=== PATIENT | male | born 1960 | race Caucasian/White ===

== ENCOUNTER 2018-09-19 00:41 | Outpatient (CLI) | payer BC, SELFPAY ==
--- NOTE | 2018-09-19 08:19 | DI.RAD_ITS ---
SYMPTOMS/DIAGNOSIS: BRUISING, TENDERNESS, SWELLING, DORSUM OF LEFT FOOT, ? TRAUMA, S90.32XA LEFT FOOT: No fracture or dislocation is seen. There are no significant degenerative changes. IMPRESSION: Negative left foot.
[2018-09-19 08:42] LABS: Abs Immature Grans 0.01 k/cumm (0.0-0.09); Absolute Basophil Count 0.01 k/cumm (0.0-0.2); Absolute Eosinophil Count 0.15 k/cumm (0.0-0.7); Absolute Monocyte Count 0.49 k/cumm (0.11-0.7); Absolute Neutrophil Count 3.11 k/cumm (1.2-6.7); Basophils % 0.2; Eosinophils % 3.3; HCT 44.6 % (40.0-50.0); HGB 15.4 g/dL (13.5-17.5); Immature Grans % 0.2; Lymphocytes % 17.5; Mean Corp. HGB Concentration 34.5 g/dL (32.0-36.0); Mean Corpuscular Volume 86.8 fL (80-95); Monocytes % 10.7; Neutrophils % 68.1; Platelet Count 227 x1000/uL (130-400); RBC 5.14 m/cumm (4.50-6.00); White Blood Cell Count 4.57 k/cumm (4.4-10.8)
[2018-09-19 08:57] LABS: INR 1.1 (1.0-3.5); Prothrombin Time 10.4 sec (9.3-10.8)
[2018-09-19 10:31] LABS: ALT 55 U/L (12-78); AST 44 U/L (15-37); Albumin 4.3 g/dL (3.4-5.0); Alkaline Phosphatase 45 U/L (46-116); Anion Gap 8.9 mmol/L (3-11); BUN 12 mg/dL (7-18); CO2 28.1 mmol/L (21.0-32.0); Calcium 9.3 mg/dL (8.5-10.1); Chloride 102 mmol/L (98-107); Cholesterol 183 mg/dL (50-200); Glucose 96 mg/dL (70-100); HDL Cholesterol 113 mg/dL (40-60); LDL CHOLESTEROL 58 mg/dL (<100); Potassium 4.3 mmol/L (3.5-5.1); Sodium 139 mmol/L (136-145); Total Protein 7.1 g/dL (6.4-8.2); Triglyceride 44 mg/dL (30-150)
== END 2018-09-19 01:01 ==
PROVIDERS: PCP Nurse Practitioner Family; Visit Provider Nurse Practitioner Family
DX: M79.672 Pain in left foot (principal); R22.42 Localized swelling, mass and lump, left lower limb; R23.8 Other skin changes; E78.5 Hyperlipidemia, unspecified; S90.32XA Contusion of left foot, initial encounter
CPT/HCPCS: 36415; 80053; 80061; 83721; 73630; 85025; 85610

== ENCOUNTER 2020-01-29 08:09 | Outpatient (CLI) | payer OTHER, SELFPAY ==
[2020-01-29 09:23] LABS: ALT 51 U/L (16-63); AST 43 U/L (15-37); Albumin 4.5 g/dL (3.4-5.0); Alkaline Phosphatase 53 U/L (46-116); Anion Gap 8.8 mmol/L (3-11); BUN 13 mg/dL (7-18); Bilirubin, Total 0.6 mg/dL (0.2-1.0); CO2 28.2 mmol/L (21.0-32.0); CREATININE 0.87 mg/dL (0.70-1.30); Calcium 9.2 mg/dL (8.5-10.1); Calculated LDL 74 mg/dL (<100); Chloride 103 mmol/L (98-107); Cholesterol 184 mg/dL (<200); Glucose 96 mg/dL (74-106); HDL Cholesterol 103 mg/dL (40-60); Potassium 4.2 mmol/L (3.5-5.1); Sodium 140 mmol/L (136-145); TSH (W/Ref FT4) 2.73 uIU/mL (0.36-3.74); Total Protein 7.1 g/dL (6.4-8.2); Triglyceride 35 mg/dL (<150)
== END 2020-01-29 08:29 ==
PROVIDERS: PCP Nurse Practitioner Family; Visit Provider Nurse Practitioner
DX: I10 Essential (primary) hypertension (principal); E78.5 Hyperlipidemia, unspecified; R63.4 Abnormal weight loss
CPT/HCPCS: 36415; 80053; 80061; 84443

== ENCOUNTER 2020-02-05 01:13 | Outpatient (CLI) | payer OTHER, SELFPAY ==
--- NOTE | 2020-02-05 09:45 | DI.US_ITS ---
EXAM: US ABDOMEN CLINICAL HISTORY: HEP C, HEAVY ALCOHOL USE,? FATTY LIVER VS CIRRHOSIS, R94.5, B19.20, Z78.9 TECHNIQUE: Ultrasound abdomen performed using standard protocol. COMPARISON: No exams were available for comparison FINDINGS: LIVER: Diffuse increased echogenicity. 18.9 cm in length. Hepatopedal flow in the Portal Vein. GALLBLADDER: No evidence of cholelithiasis. No evidence of wall thickening. No pericholecystic fluid identified. KIDNEYS: Kidneys are symmetric in size. No evidence of renal calculi. No evidence of hydronephrosis. No renal mass or cyst identified. BILIARY SYSTEM: Common bile duct measures 2.3 mm. No intrahepatic biliary ductal dilation. KENNEDY'S SIGN: Negative. PANCREAS: Normal where visualized. SPLEEN: Not enlarged. ABDOMINAL AORTA AND IVC: Visualized portions normal caliber. ASCITES: None seen. IMPRESSION: Hepatomegaly and hepatic steatosis. DATA REPOSITORY:
== END 2020-02-05 01:33 ==
PROVIDERS: PCP Nurse Practitioner Family; Visit Provider Nurse Practitioner Family
DX: B19.20 Unspecified viral hepatitis C without hepatic coma (principal); F10.10 Alcohol abuse, uncomplicated; R94.5 Abnormal results of liver function studies; R16.0 Hepatomegaly, not elsewhere classified; K76.0 Fatty (change of) liver, not elsewhere classified
CPT/HCPCS: 76700

== ENCOUNTER 2020-10-22 01:51 | Outpatient (CLI) | payer OTHER, SELFPAY ==
[2020-10-25 14:43] LABS: Patient Race White; SARS-CoV-2 RNA Undetected (Undetected); SARS-CoV-2 Specimen Source Nasal
== END 2020-10-22 02:11 ==
PROVIDERS: Nurse Practitioner; PCP Nurse Practitioner Family; Visit Provider Nurse Practitioner Family
DX: Z20.828 Contact with and (suspected) exposure to other viral communicable diseases (principal)
CPT/HCPCS: U0003

== ENCOUNTER → 2020-12-24 03:00 | Outpatient (CLI) | payer OTHER, SELFPAY ==
[2020-12-24 08:32] LABS: Absolute Basophil Count 0.01 10^3/uL (0.0-0.2); Absolute Eosinophil Count 0.25 10^3/uL (0.0-0.7); Absolute Lymphocyte Count 0.81 10^3/uL (1.2-3.4); Absolute Neutrophil Count 2.94 10^3/uL (1.2-6.7); Basophils % 0.2; Eosinophils % 5.7; HCT 44.3 % (40.0-50.0); HGB 14.8 g/dL (13.5-17.5); Lymphocytes % 18.4; MCH 28.7 pg (27.0-33.0); MCHC 33.4 % (32.0-36.0); MCV 85.9 fL (80-95); MPV 8.6 fL (8.0-11.0); Monocytes % 9.1; Neutrophils % 66.6; Nucleated RBC 0 %; Platelet Count 218 10^3/uL (130-400); RBC 5.16 10^6/uL (4.36-5.78); RDW 12.7 % (11.8-14.1); RDW-SD 40.2 fL; WBC 4.41 10^3/uL (4.4-10.8)
[2020-12-24 08:39] LABS: INR 1.1 (0.9-1.1); Prothrombin Time 11.3 sec (9.3-11.0)
[2020-12-24 09:38] LABS: ALT 47 U/L (16-63); AST 33 U/L (15-37); Albumin 4.3 g/dL (3.4-5.0); Alkaline Phosphatase 43 U/L (46-116); Anion Gap 6.2 mmol/L (3-11); BUN 14 mg/dL (7-18); Bilirubin, Total 0.8 mg/dL (0.2-1.0); CO2 26.8 mmol/L (21.0-32.0); CREATININE 0.86 mg/dL (0.70-1.30); Calcium 9.2 mg/dL (8.5-10.1); Calculated LDL 60 mg/dL (<100); Chloride 105 mmol/L (98-107); Cholesterol 174 mg/dL (<200); Glucose 108 mg/dL (74-106); HDL Cholesterol 105 mg/dL (40-60); Potassium 4.2 mmol/L (3.5-5.1); Sodium 138 mmol/L (136-145); Total Protein 6.9 g/dL (6.4-8.2); Triglyceride 48 mg/dL (<150)
== END ==
PROVIDERS: PCP Nurse Practitioner Family; Visit Provider Nurse Practitioner Family
DX: E78.5 Hyperlipidemia, unspecified (principal); K76.0 Fatty (change of) liver, not elsewhere classified; I10 Essential (primary) hypertension; Z51.81 Encounter for therapeutic drug level monitoring
CPT/HCPCS: 36415; 80053; 80061; 85025; 85610

== ENCOUNTER 2021-07-08 10:28 | Emergency (ER) | payer OTHER, SELFPAY ==
[2021-07-08] VITALS (22 sets, daily range): BP systolic 122–141; BP diastolic 79–95; PULSE 50–61; RESP 9–27; TEMP 36.4; O2SAT 93–100
--- NOTE | 2021-07-08 10:48 | ED.GENADUL_ITS ---
Discharge Plan Disposition Patient Disposition: HOME Condition: Improving Discharge Details Clinical Impression: Thoracic compression fracture, Fall from roof Primary Care Provider: Salome Domingo ED Provider: Ananya Riley Home Meds and New Rx's Prescriptions: New oxycodone 5 mg tablet 5 mg PO Q6H PRN (Reason: pain) Qty: 10 RF: 0 methocarbamol 500 mg tablet 500 mg PO Q6H PRN (Reason: muscle spasm) Qty: 14 RF: 0 Continued tadalafil [Cialis] 10 mg tablet 10 mg PO DAILY MDD 1 dose PRN (Reason: sexual activity) Qty: 30 RF: 0 aspirin 81 MG tablet,delayed release (DR/EC) 81 mg PO DAILY Qty: 90 RF: 3 tamsulosin 0.4 mg capsule 0.4 mg PO DAILY Qty: 90 RF: 3 amlodipine 10 mg tablet 10 mg PO DAILY Qty: 90 RF: 3 atorvastatin [Lipitor] 40 mg tablet 40 mg PO DAILY Qty: 90 RF: 3 Discharge Instructions Instructions: Vertebral Compression Fracture (ED), Fall Prevention (ED) Additional Instructions: Apply ice to the affected area several times daily for 20 minutes at a time. Be sure to rest as much as possible and avoid heavy lifting, pushing or pulling until follow-up with Spine [facility] at [facility]. Alternate tylenol and motrin as needed and directed for pain. Take the oxycodone for pain not relieved with Tylenol or Motrin. Your prescription has been sent electronically to your pharmacy. Follow-up with your primary care doctor in 1 week and for referral to Sp[facility] at [facility]. You have been placed on our care management list to help arrange for a follow-up appointment with Spine Medicine. Return to the emergency department with any worsening or new concerning symptoms such as difficulty urinating, difficulty ambulating or any other concerns. Discharge Data Discharge Date/Time-TO BE ENTERED AT DEPARTURE: 07/08/21 13:42 Discharge Physician: Ananya Riley Medical Decision Making 60-year-old male presents with midline lower back pain after fall 10 feet off of a roof landing directly on both feet. Denies head injury, chest injury, abdominal pain, difficulty breathing. Denies any extremity pain. Oxygen saturation 100% on RA. He has tenderness to palpation midline lumbar spi ne. No focal deficits. No evidence of head, chest or abdominal trauma. Will obtain CT lumbar spine and give Toradol and oxycodone and reassess. Lumbar spine CT notes mild compression fracture of anterior superior endplate of T12. CT imaging reviewed with orthopedics and recommend rest, ice and pain control and follow-up with spine at [facility]. Patient had reported he landed on both feet. Son provided information to stating that he thinks pt hit his back on the ground. Lower T and upper L-spine tender. B/L posterior chest and remainder of the T-spine and C-spine on reexamination remains nontender. A portable chest x-ray obtained and no evidence of pneumothorax Patient reassessed and he feels better. He is hemodynamically stable. Pain slightly returned and he was given another dose of oxycodone. Prescription for pain medication sent electronically to his pharmacy. Patient placed on care management list to help arrange for follow-up appointment with spine at [facility]. Usual and customary return precautions given prior to discharge. Medical Records Medical records reviewed: Yes I reviewed the patient's medical records. Imaging Data Radiologic Study: Radiologist's impression: CT LUMBAR SPINE WO CLINICAL HISTORY: s/p fall down 10 feet off roof. TECHNIQUE: Imaging Protocol: Axial computed tomography images with coronal and sagittal reformatted images were created and reviewed COMPARISON: CR from 06/23/2015 CR CHEST 2 VIEWS PA,LAT from 07/01/2015 CR CHEST 2 VIEWS PA,LAT from 07/01/2015 FINDINGS: Bones: The last intervertebral disc space is designated the L5/S1 level for the numbering purpose of this examination. . Alignment is satisfactory. There is a mild compression fracture of the anterosuperior endplate of T12. The fracture does not extend to involve the posterior aspect of the vertebral body. There is a small bony fragment displaced anteriorly. There is no significant paraspinal hematoma. No additional fractures are seen. There is disc space narrowing at L4-5 and mild facet joint causing neural foraminal encroachment. Mild disc bulging is seen at L3-4.. Soft Tissues: The visualized SI joints and sacrum are will maintained. The paraspinal soft tissues are unremarkable. IMPRESSION: Mild compression fracture of the anterior superior endplate of T12 XR PORTABLE CHEST AP CLINICAL HISTORY: fell directly onto back from roof, r/o PTX TECHNIQUE: 2D digital imaging was performed. COMPARISON: CR CHEST 2 VIEWS PA,LAT from 07/01/2015 FINDINGS: LUNGS: Clear. No pleural abnormality seen. HEART: Normal. MEDIASTINUM: Normal. BONES: Left shoulder prosthesis. No rib fracture identified. IMPRESSION: No acute pulmonary findings. HPI General Mode of arrival: ambulatory . Date/Time Provider Initiated Documentation: 07/08/21 10:33 . Limitations to Documentation: no limitations . Information obtained by: patient . HPI Narrative: Patient is a 60-year-old male presents with midline lower back pain after falling 10 feet off a roof and landing on both of his feet prior to arrival. Patient states he was working with his son when he missed a step on a ladder and fell 10 feet down onto the grass. He states he felt like it knocked the wind out of him but he did not hit his chest or head to the ground. He is denying any pain in his feet, legs or arms. He again denies any head injury, LOC, vomiting, neck pain, chest pain, difficulty breathing or abdominal pain. He has not taken any medication for pain. Related Data Home Medications Medication Instructions Recorded Confirmed aspirin 81 mg PO DAILY #90 tab-cap 09/23/17 06/26/21 tamsulosin 0.4 mg capsule 0.4 mg PO DAILY #90 tab-cap 10/22/20 07/08/21 tadalafil 10 mg tablet 10 mg PO DAILY PRN #30 tab MDD 1 12/26/20 06/26/21 dose amlodipine 10 mg tablet 10 mg PO DAILY #90 tab-cap 02/23/21 07/08/21 atorvastatin 40 mg tablet 40 mg PO DAILY #90 tab-cap 04/28/21 07/08/21 methocarbamol 500 mg PO Q6H PRN #14 tab 07/08/21 oxycodone 5 mg PO Q6H PRN #10 tab 07/08/21 Previous Rx's Medication Instructions Recorded aspirin 81 mg PO DAILY #90 tab-cap 09/23/17 tamsulosin 0.4 mg capsule 0.4 mg PO DAILY #90 tab-cap 10/22/20 tadalafil 10 mg tablet 10 mg PO DAILY PRN #30 tab MDD 1 12/26/20 dose amlodipine 10 mg tablet 10 mg PO DAILY #90 tab-cap 02/23/21 atorvastatin 40 mg tablet 40 mg PO DAILY #90 tab-cap 04/28/21 methocarbamol 500 mg PO Q6H PRN #14 tab 07/08/21 oxycodone 5 mg PO Q6H PRN #10 tab 07/08/21 Allergies Allergy/AdvReac Type Severity Reaction Status Date / Time No Known Allergies Allergy Verified 06/26/21 08:19 General Stated Complaint: Trauma IMMANUEL: 2 Review of Systems All systems reviewed & are unremarkable except as noted in HPI and below Constitutional Constitutional: Reports as per HPI, Denies chills and Denies fever(s) Eyes Eyes: Denies blurry vision ENT Ears, Nose, Mouth, and Throat: Denies dizziness, Denies sore throat and Denies throat swelling Cardiovascular Cardiovascular: Denies chest pain and Denies dyspnea Respiratory Respiratory: Denies cough and Denies dyspnea Gastrointestinal Gastrointestinal: Denies abdominal pain, Denies diarrhea and Denies vomiting Genitourinary Genitourinary: Denies hematuria and Denies dysuria Musculoskeletal Musculoskeletal: Reports back pain and Denies numbness Integumentary/Breasts Skin/Breast: Denies lesions and Denies rash Neurologic Neurologic: Denies dizziness, Denies localized weakness and Denies numbness Allergic/Immunologic Allergic/Immunologic: Denies throat swelling [facility] Medical History Benign prostatic hyperplasia with lower urinary tract symptoms (03/18/17) Chronic low back pain (10/01/14) Erectile dysfunction Essential hypertension (10/07/15) Heavy alcohol use Hepatic steatosis Hepatitis C (10/01/14) Genotype 1, acquired late ; Liver bx: 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 Alvarez Family History (Updated 06/26/21 @ 08:33 by Salome Domingo NP) Mother Colon cancer Father Diabetes Alcohol abuse Essential hypertension Cancer Throat Brother Stroke Sister Multiple sclerosis Social History (Updated 06/26/21 @ 09:06 by Salome Domingo NP) Smoking/Tobacco Use Status: Former Tobacco Use Quit Date: 11/28/82 Smoking risk assessment performed?: Yes Alcohol Intake: current Alcohol Intake frequency: a few times a week Counseling given: Yes Drug use: Never Substance use type: does not use Caregiver/Support person: No Household members: spouse Number of Children: 2 Communication Needs: None 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 Current gender identity: male What type of physical activity do you participate in: regular exercise Frequency: daily Special neha needs: No Seatbelt use: always Helmet use: Yes Drive intox or ride w/intox car pick up driver: No Working smoke detector in home: Yes Fire extinguisher in home: Yes Carbon monox detector in home: Yes Firearms in home: Yes Do you feel safe at home: Yes Do you feel safe in your relationship?: Yes Exam Const General: cooperative and healthy appearing Orientation: alert and awake HENMT Head: normal to inspection Ears: hearing grossly normal bilaterally and external ears normal General nose exam: external nose normal Face and sinus: normal facial exam Mouth: oral mucosae normal Throat: posterior oropharynx normal Eyes General: appearance normal, both eyes and all related structures Eyelids: eyelids normal Pupils: PERRL EOM: EOM intact bilaterally Neck Neck: normal visual inspection Lymphatic: no lymphadenopathy noted Chest Chest: normal inspection of the chest and no tenderness Resp Effort & Inspection: normal respiratory effort and able to speak in complete sen tences Auscultation: clear to auscultation bilaterally Cardio Rate: regular rate Rhythm: regular rhythm GI Inspection: normal to inspection and no abdominal wall ecchymosis Palpation: soft, not firm, no guarding, no hepatosplenomegaly, no masses and nontender Auscultation: normal bowel sounds Back/Spine/Pelvis Cervical Spine: No cervical spinal tenderness Thoracic/Lumbar Spine: No paraspinal tenderness, No thoracic spinal tenderness and lumbar spinal tenderness Pelvis: no pain with anterior-posterior compression Skin General skin exam: no rashes or lesions noted Neuro General: patient alert and patient awake Cognition: normal cognition Speech: speech normal Gait: normal gait Motor: muscle tone normal throughout Sensory Exam: no sensory deficits noted Extrem General: normal to inspection, full ROM and capillary refill normal Elbow/forearm/wrist images: 1. Two 1 cm superficial lacerations, bleeding controlled. No bony tenderness. Psych Appearance: grossly normal Mental Status: mental status grossly normal Speech and Movement: speech and movement normal Affect: normal affect Thought Process: normal Course Vital Signs Vital signs: Vital Signs Temperature 97.5 F L 07/08/21 10:35 Pulse 56 L 07/08/21 10:35 Respiratory Rate 12 07/08/21 10:35 Blood Pressure 141/84 H 07/08/21 10:35 Pulse Oximetry 100 07/08/21 10:35 Temperature 97.5 F L 07/08/21 10:35 Temperature Source Skin 07/08/21 10:35 Pulse 56 L 07/08/21 10:35 Respiratory Rate 12 07/08/21 10:35 Blood Pressure 141/84 H 07/08/21 10:35 Pulse Oximetry 100 07/08/21 10:35 Oxygen Delivery Method Room Air 07/08/21 10:35 Oxygen Flow Rate 0 07/08/21 10:35 Pain Level 10 07/08/21 10:35
--- NOTE | 2021-07-08 11:00 | DI.CT_ITS ---
Exam(s) CT LUMBAR SPINE WO EXAM: CT LUMBAR SPINE WO CLINICAL HISTORY: s/p fall down 10 feet off roof. TECHNIQUE: Imaging Protocol: Axial computed tomography images with coronal and sagittal reformatted images were created and reviewed COMPARISON: CR from 06/23/2015 CR CHEST 2 VIEWS PA,LAT from 07/01/2015 CR CHEST 2 VIEWS PA,LAT from 07/01/2015 FINDINGS: Bones: The last intervertebral disc space is designated the L5/S1 level for the numbering purpose of this examination. . Alignment is satisfactory. There is a mild compression fracture of the anterosuperior endplate of T12. The fracture does not ex tend to involve the posterior aspect of the vertebral body. There is a small bony fragment displaced anteriorly. There is no significant paraspinal hematoma. No additional fractures are seen. There is disc space narrowing at L4-5 and mild facet joint causing neural foraminal encroachment. Mild dis c bulging is seen at L3-4.. Soft Tissues: The visualized SI joints and sacrum are will maintained. The paraspinal soft tissues a re unremarkable. IMPRESSION: Mild compression fracture of the anterior superior endplate of T12 RADIATION DOSE DELIVERED: 523.4mGy.cm Total DLP 523.4mGy.cm Total DLP DATA REPOSITORY: All CT scans at this facility are submitted to the National Radiology Data Registry (NRDR) Dose Index Registry (DIR) with the [employer] (A[employer]). RADIATION OPTIMIZATION: All CT scans at this facility use at least one of these dose optimization te chniques: automated exposure control; mA and/or kV adjustment per patient size (includes targeted exa ms where dose is matched to clinical indication); or iterative reconstruction.
[2021-07-08] MEDS: oxyCODONE 5 MG TAB PO ×2 (11:10→13:27)
[2021-07-08] MEDS: Ketorolac 30 MG/ML VIAL IVP (11:10)
--- NOTE | 2021-07-08 12:41 | DI.RAD_ITS ---
Exam(s) XR PORTABLE CHEST AP EXAM: XR PORTABLE CHEST AP CLINICAL HISTORY: fell directly onto back from roof, r/o PTX TECHNIQUE: 2D digital imaging was performed. COMPARISON: CR CHEST 2 VIEWS PA,LAT from 07/01/2015 FINDINGS: LUNGS: Clear. No pleural abnormality seen. HEART: Normal. MEDIASTINUM: Normal. BONES: Left shoulder prosthesis. No rib fracture identified. IMPRESSION: No acute pulmonary findings. DATA REPOSITORY: RADIATION DOSE DELIVERED:
--- NOTE | 2021-07-08 13:36 | NUR.NOTE ---
Nursing Note: Referral given to Care Management to [facility] for T12 compression fx, within 1 to 2 weeks. Beatrice Martini
--- NOTE | 2021-07-09 08:44 | PDOC.ERCMPRO ---
- If Service Date Differs Date of service: 07/09/21 Time of Service: 08:45 Care Management Progress Note Marcelo is seen in the ED for a T12 compression fracture. At the request of ED provider, CM coordinates a referral to [facility] to assist Marcelo in obtaining an appointment with a business operations specialist.
== END 2021-07-08 13:42 | disposition home or self-care (01) ==
PROVIDERS: Emergency Provider Physician Assistant; PCP Nurse Practitioner Family
DX: S22.080A Wedge compression fracture of T11-T12 vertebra, initial encounter for closed fracture (principal); W13.2XXA Fall from, out of or through roof, initial encounter; M54.6 Pain in thoracic spine; S51.812A Laceration without foreign body of left forearm, initial encounter
CPT/HCPCS: 36415; 96374; 99284; 71045; 72131; 99285; J1885

== ENCOUNTER 2021-12-24 03:43 | Outpatient (CLI) | payer OTHER, SELFPAY ==
[2021-12-24 11:09] LABS: Abs Immature Grans 0.01 10^3/uL (0.0-0.06); Absolute Basophil Count 0.02 10^3/uL (0.0-0.2); Absolute Eosinophil Count 0.12 10^3/uL (0.0-0.7); Absolute Lymphocyte Count 0.83 10^3/uL (1.2-3.4); Absolute Monocyte Count 0.41 10^3/uL (0.1-0.8); Absolute Neutrophil Count 2.93 10^3/uL (1.2-6.7); Basophils % 0.5; Eosinophils % 2.8; HCT 43.1 % (40.0-50.0); HGB 14.2 g/dL (13.5-17.5); Immature Grans % 0.2; Lymphocytes % 19.2; MCH 29.2 pg (27.0-33.0); MCHC 32.9 % (32.0-36.0); MCV 88.5 fL (80-95); MPV 8.7 fL (8.0-11.0); Monocytes % 9.5; Neutrophils % 67.8; Nucleated RBC 0 %; Platelet Count 215 10^3/uL (130-400); RBC 4.87 10^6/uL (4.36-5.78); RDW 12.4 % (11.8-14.1); RDW-SD 40.5 fL; WBC 4.32 10^3/uL (4.4-10.8)
[2021-12-24 11:33] LABS: INR 1.1 (0.9-1.1); Prothrombin Time 10.8 sec (9.3-11.0)
[2021-12-24 13:13] LABS: ALT 50 U/L (16-63); AST 33 U/L (15-37); Albumin 4.5 g/dL (3.4-5.0); Alkaline Phosphatase 47 U/L (46-116); Anion Gap 9.9 mmol/L (3-11); BUN 13 mg/dL (7-18); Bilirubin, Total 0.7 mg/dL (0.2-1.0); CO2 27.1 mmol/L (21.0-32.0); CREATININE 0.8 mg/dL (0.70-1.30); Calcium 9.1 mg/dL (8.5-10.1); Calculated LDL 69 mg/dL (<100); Chloride 103 mmol/L (98-107); Cholesterol 173 mg/dL (<200); Glucose 89 mg/dL (74-106); HDL Cholesterol 97 mg/dL (40-60); Potassium 4.1 mmol/L (3.5-5.1); Sodium 140 mmol/L (136-145); Triglyceride 39 mg/dL (<150)
== END 2021-12-24 03:44 | disposition home or self-care (01) ==
LOC: LBO 03:44
PROVIDERS: PCP Nurse Practitioner Family; Visit Provider Nurse Practitioner Family
DX: I10 Essential (primary) hypertension (principal); E78.5 Hyperlipidemia, unspecified; K76.0 Fatty (change of) liver, not elsewhere classified; R79.89 Other specified abnormal findings of blood chemistry
CPT/HCPCS: 36415; 80053; 80061; 85025; 85610

== ENCOUNTER 2022-08-30 07:46 | Day surgery (SDC) | payer OTHER, SELFPAY ==
--- NOTE | 2022-08-30 06:44 | W.COLOREPORT ---
Colonoscopy Report Date of procedure: 08/30/22 Pre-op diagnosis general: Colon Cancer Screening and Family Hx Post-op diagnosis procedure note: other (polyps and fam. Hx) Procedure: Colonoscopy with polypectomy Surgeon: Leah Goff Anesthesia Type: General:No Airway Estimated blood loss (mL): 2 Pathology: other (Rectal, ascending, transverse and descening polyps) Complications: None Disposition: same day Indications: The patient? is a pleasant? 61 -year-old male who is here to discuss another screening colonoscopy. ? HIs last colonoscopy was in 2015 and was normal. He has a Family history of colon cancer in his mother, who in her early 80's from colon cancer.? He denies any changes in bowel habits, melena, hematochezia and? unintentional weight loss.? The procedure and risks were discussed.? The prep was reviewed in detail.? Risks, benefits and complications have been reviewed. Complications include but are not limited to bleeding, pain, perforation, missed small lesion/polyp, sore throat, aspiration and adverse reaction to the medications. Questions were entertained and answered to their satisfaction and they wished to proceed. No guarantees were given or implied. Prep: Miralax/Dulcolax Procedure Start Time: 10:03 Procedure End Time: 10:27 Retraction Time: 16 minutes Findings: 5 small polyps Procedure Description: After informed consent was obtained the patient was taken to the procedure room and placed in a left decubitous position. Monitors were applied and a time out was done. The patients name, date of , procedure, allergies to medications and metal in their body was reviewed. The patient was then sedated. Once sedated and comfortable a rectal exam was done. External exam was normal. Internal exam revealed a normal sphincter tone and no palpable masses. The prostate felt smooth and enlarged. The scope was then introduced and retro-flexed. No internal hemorrhoids, polyps or masses were identified on retro-flexion. The scope was then advanced to the cecum without difficulty. The ileocecal vlave and appendiceal orifice were identified. The prep was adequate. The scope was then slowly retracted over 16 minutes back into the rectum. Polyps were removed with cold forceps in the ascending colon x1. transverse colon x1, descending polyp and rectal polyps x2. There was no diverticulosis noted. The scope was removed and the patient was woken up and taken back to Same day surgery in stable condition. The patient tolerated the procedure well and there were no immediate complications. Follow up: The patient should follow up in 5 years unless they develop changes in bowel habits or other new gastrointestinal complaints.
--- NOTE | 2022-08-30 06:44 | W.PM.DSUDISC ---
Discharge Plan Disposition Patient Disposition: HOME Condition: Good Discharge Details Reason For Visit: Colonoscopy Attending Provider: Leah Goff Primary Care Provider: Salome Domingo Home Meds and New Rx's Prescriptions: Continued ibuprofen 800 mg tablet 800 mg PO Q8H amlodipine 10 mg tablet 10 mg PO DAILY Qty: 90 3RF tamsulosin 0.4 mg capsule 0.4 mg PO DAILY Qty: 90 3RF atorvastatin [Lipitor] 40 mg tablet 40 mg PO DAILY Qty: 90 3RF Discontinued bisacodyl [Dulcolax (bisacodyl)] 5 mg tablet,delayed release (DR/EC) 5 mg PO ONCE Qty: 4 0RF Rx Instructions: Take according to provider's instructions for colonoscopy prep. polyethylene glycol 3350 17 gram/dose powder 17 g PO ONCE Qty: 238 0RF Rx Instructions: To be taken as directed by prescriber's office for colonoscopy prep. Discharge Instructions Instructions: Colorectal Polyps (DC) Additional Instructions: Findings: 5 small polyps Follow up: 5 years more then likely Please call if you develop: fevers >101.5 Nausea or Vomiting Abdominal pain that is not transient Rectal bleeding that is more then a tbsp A hard abdomen and inability to pass gas DAY SURGERY UNIT POST ENDOSCOPY INSTRUCTIONS Instructions for everyone who is given Anesthesia: For your safety, please do the following for the next 24 Hours: a. Do not drive or operate dangerous equipment b. Do not drink alcohol beverages or use any recreational drugs for the first 24 hours or while taking pain medications. The medications in your body may have a reaction that can be dangerous. c. Do not make any important decisions or sign any important papers 1. Generally there are no restrictions on your activity after a day or so has gone by, but you may feel a bit fatigued for a few days. 2. After you arrive home you may have a light meal and return to a normal diet as you can tolerate it without feeling sick to your stomach. 3. After surgery, you may feel pain or discomfort. This should be only transient, but if it persists please contact your doctor. 4. If there are any questions regarding the findings of your procedure, please feel free to contact your doctor. 6. If you are unable to contact your doctor with a problem, contact the hospital at [phone]. 7. Continue all your regular medications unless directed otherwise. I understand the above instructions and have no questions. Signature of Patient or Responsible Adult Escort Date/Time Name of Responsible Adult Escort Signature of Nurse Date/Time Activity:: Activity as Tolerated Diet:: As Tolerated Discharge Orders Discharge Orders: Discharge Order (Routine); Ordered 08/30/22 Ordered By: Leah Goff
[2022-08-30 08:08] VITALS: BP 125/95; PULSE 55; RESP 16; TEMP 36.5; O2SAT 99
[2022-08-30] MEDS: Lactated Ringers 1,000 ML 80 ML IV (08:15)
--- NOTE | 2022-08-30 09:39 | W.ANESPRE ---
General Info Date of Service Date Performed: 08/30/22 Height: 5 ft 9 in Weight: 71.9 kg Body Mass Index (BMI): 23.3 Surgical Procedure: Operation Date: 08/30/22 09:05 Proposed Procedure Side Surgeon charan Goff MD Meds Allergies and Home Medications Allergies Allergy/AdvReac Type Severity Reaction Status Date / Time No Known Allergies Allergy Verified 08/30/22 08:03 Home Medication Medication Instructions Recorded amlodipine 10 mg tablet 10 mg PO DAILY #90 tab-caps 12/01/21 tamsulosin 0.4 mg capsule 0.4 mg PO DAILY #90 tab-caps 12/01/21 atorvastatin 40 mg tablet (Lipitor) 40 mg PO DAILY #90 tab-caps 02/05/22 bisacodyl 5 mg tablet,delayed 5 mg PO ONCE #4 tabs 08/10/22 release (Dulcolax (bisacodyl)) ibuprofen 800 mg tablet 800 mg PO Q8H 08/10/22 polyethylene glycol 3350 17 17 g PO ONCE #238 grams 08/10/22 gram/dose oral powder Current Visit Medications: Current Medications Generic Name Dose Route Start Last Admin Trade Name Freq PRN Reason Stop Dose Admin Hyoscyamine Sulfate 0.125 mg 08/30/22 06:45 Hyoscyamine 0.125 Mg Sl/Oral/Chew SL DIRECTED PRN Ringer's Solution 1,000 mls @ 80 mls/hr 08/30/22 06:00 08/30/22 08:15 IV 09/26/22 23:59 80 mls/hr INFUSION CR Administration IV Miscellaneous Supplies 1 each 08/30/22 06:00 Iv Access IV 09/26/22 23:59 DIRECTED CR Ondansetron HCl 4 mg 08/30/22 06:45 Ondansetron 4 Mg/2 Ml Vial IVP Q4H PRN PRN Nausea / Vomiting Sodium Chloride 0 ml 08/30/22 06:00 Normal Saline Flush 10 Ml Syr IV 09/26/22 23:59 PRN PRN Sodium Chloride 0 ml 08/30/22 06:00 Normal Saline 10 Ml Vial IJ 09/26/22 23:59 DIRECTED PRN Sterile Water 0 ml 08/30/22 06:00 Water,Injection,Sterile 10 Ml Vial IJ 09/26/22 23:59 DIRECTED PRN PFSH Active Problems Active Problems: Problem Status Onset Code Hyperlipidemia Benign prostatic hyperplasia with lower urinary tract symptoms 03/18/17 N40.1 Chronic low back pain 10/01/14 M54.5, G89.29 Essential hypertension 10/07/15 I10 Heavy alcohol use Z78.9 Hepatic steatosis K76.0 Erectile dysfunction N52.9 Medical History Medical History Hepatitis C (10/01/14) Genotype 1, acquired late s; Liver bx: chronic hepatitis C stage 3/4, grade 2/4 (mild activity) and steatofibrosis; S/p 48 wk rx end 08/2010 with SVR Thoracic compression fracture Surgical History Surgical History (Updated 08/30/22 @ 08:06 by Mindy Mckenzie) Hx of colonoscopy Status post shoulder surgery (~1986) Shane Cr shoulder RTC. Dr. Persaud did shoulder replacement 17 years later Tobacco Smoking/Tobacco Use Status: Former Tobacco Use Passive smoking exposure: No Alcohol Alcohol Intake: current Alcohol intake frequency: a few times a week Alcohol type: beer Substance Use Substance use: Never Substance use type: does not use Details: alcohol: t-2, 3 beers Vital Signs and Lab Results Vital Signs Most Recent Vital Signs in EMR: Most Recent Vital Signs Temp Pulse Resp BP Pulse Ox 36.5 C 55 L 16 125/95 H 99 08/30/22 08:08 08/30/22 08:08 08/30/22 08:08 08/30/22 08:08 08/30/22 08:08 Lab Results Blood Type / Crossmatch: No Data to Display Complete Blood Count: No Data to Display Complete Metabolic Panel: No Data to Display Liver Function Panel: No Data to Display Coagulation Panel: No Data to Display Cardiac Panel: No Data to Display Arterial Blood Gas: No Data to Display Venous Blood Gas: No Data to Display Pancreas Panel: No Data to Display Thyroid Panel: No Data to Display Infectious Disease: No Data to Display Blood Cultures: No Data to Display Toxicology Panel: No Data to Display Anesthesia Assessment and Plan Anesthesia History Personal History: No History of Anesthesia Complications Family History: No Family History of Anesthesia Complications Exercise Tolerance Exercise Tolerance: Metabolic Equivalents>4 Pertinent Negatives Pertinent Negatives: No Symptoms of GERD, No Major Cardiovascular Symptoms or Complaints, No Major Pulmonary Symptoms or Complaints (Quit 40 years ago) and No History of CVA/TIA Cardiac & Pulmonary Exam Cardiac Exam: Normal S1/S2 Heart Sounds Pulmonary Exam: Clear Bilateral Breath Sounds Implantable Cardiac Device Does patient have a Pacemaker or an ICD?: No Airway Exam Known Difficult Airway: No Mallampati Class: 1 Mouth Opening: Normal (> 3cm) Thyromental Distance: Greater than 3 cm Neck Range of Motion: Full ROM Neck Circumference: Normal Teeth Condition: Normal Dentition Airway Comments: High angle narrow palate ASA Classification ASA Score: ASA 2 Emergency Case?: No NPO Status NPO Status: NPO Clears >2 hours, Solids >8 hours Anesthesia Plan Resuscitation Status: Full Code Anesthesia Technique: General Anesthesia Airway Planned: Natural Airway Monitors Used: Standard Monitors
[2022-08-30 09:44] VITALS: BMI 23.3
--- NOTE | 2022-08-30 10:05 | BOWEL_PTH ---
PATIENT: Marcelo Babcock LOC: [facility] U#:[id number] AGE/SX: 62/M ROOM: RE08/30/[address]: Leah Goff MD : 1960 BED: DIS: 08/30/2022 SPEC #: [id number] RECD: 08/30/22 12:25 STATUS: GENO REQ #: [id number] SARAH: 08/30/22 10:[address]: Leah Goff DEPT: Surgical Specimen RECD BY: Ashley Carcamo ENTERED: 08/30/22 12:26 SP TYPE: Bowel OTHR DR: Salome Domingo, IVETTE Tissues: 1 - BIOPSY BOWEL 2 - BIOPSY BOWEL 3 - BIOPSY BOWEL 4 - BIOPSY BOWEL Procedures: GROSS AND MICRO LEVEL 4 Comments: [id number]
[2022-08-30 10:34] VITALS: BP 111/77; PULSE 58; RESP 20; TEMP 36.3; O2SAT 98
--- NOTE | 2022-08-30 10:38 | W.ANESPOSTOP ---
Postoperative Evaluation Date, Time and Location Date Performed: 08/30/22 Time Performed: 10:38 Patient Location: Day Surgery Unit Vital Signs Most Recent Imported Vital Signs: Most Recent Vital Signs Temp Pulse Resp BP Pulse Ox 36.5 C 55 L 16 125/95 H 99 08/30/22 08:08 08/30/22 08:08 08/30/22 08:08 08/30/22 08:08 08/30/22 08:08 Most Recent Manually Entered Vital Signs: Adult Blood Pressure: 111/77 Heart Rate: 55 Respirations: 12 Oxygen Saturation (%): 99 Temperature (C): 36.3 C Pain Score (0-10 Scale): 0 Pain Score Most Recent Pain Score: Most Recent Pain Score Pain Level 0 08/30/22 08:08 Assessment Mental Status: Awake (Alert & Oriented to Patient Baseline) Airway and Respiratory Function: Patent airway with normal (patient baseline) respiratory exam Cardiovascular Function: Hemodynamically Stable Hydration Status: Adequately Hydrated Nausea & Vomiting: No Nausea or Vomiting Pain: Pt. Denies Any Pain Peripheral Nerve Block: Patient did not receive a nerve block
[2022-08-30 10:39] VITALS: BP 111/77; PULSE 55; RESP 12; TEMPC 36.3; O2SAT 99
[2022-08-30 10:59] VITALS: BP 123/99; PULSE 49; RESP 18; TEMP 36.5; O2SAT 98
== END 2022-08-30 11:36 | disposition home or self-care (01) ==
PROVIDERS: PCP Nurse Practitioner Family; Visit Provider Surgery
PROC: 0DJD8ZZ Inspection of Lower Intestinal Tract, Via Natural or Artificial Opening Endoscopic (ICD-10-PCS; CPT 45378; principal; 2022-08-30 09:00)
DX: Z12.11 Encounter for screening for malignant neoplasm of colon (principal); K63.5 Polyp of colon; Z80.0 Family history of malignant neoplasm of digestive organs; K62.1 Rectal polyp; K62.89 Other specified diseases of anus and rectum
CPT/HCPCS: 45380; 88305

== ENCOUNTER 2023-03-25 01:12 | Outpatient (CLI) | payer OTHER, SELFPAY ==
--- OUTSIDE RECORDS SUMMARY | 2023-03-25 01:14 | XMS_ITS | CCD ---
Author Name Unknown Address [address] [place] [address] [id number] Organization Unknown Address [address] [place], [place] [id number] Care Team Providers Care Lumber Material Handler Name Role Phone LAURENCE RAMIREZ Attending Physician [phone] Vital Signs Unknown or Not Available. Allergies Allergy Code Allergy Type Reaction Status No Known Drug Allergies 0 No known drug allergies Active Procedures Unknown or Not Available. History of Immunizations Unknown or Not Available. Problems Unknown or Not Available. Results Unknown or Not Available. Active Medications Unknown or Not Available. Medications Administered During Visit Unknown or Not Available. Encounters Encounter Diagnosis Diagnosis Code Start Date Collapsed vertebra, not else where classified, thoracic region, initial encounter for fracture [id number] 07/30/2021 Social History Smoking Status Code Start Date End Date Never smoker [id number] Patient Decision Aids Unknown or Not Available. Discharge Instructions You were admitted to [facility] on 07/30/2021 00:01 with a principal diagnosis of Collapsed vertebra, not elsewhere classified, thoracic region, initial encounter for fracture You were discharged from [facility] on 07/30/2021 00:01 Should you have any questions prior to discharge, please contact a member of your healthcare team. If you have left the hospital and have any questions, please contact your primary care physician. Chief Complaint and Reason For Visit Unknown or Not Available. Function Status Unknown or Not Available. Plan of Care Unknown or Not Available. Referral/Transition of Care Unknown or Not Available.
[2023-03-25 07:53] LABS: Abs Immature Grans 0.01 10^3/uL (0.0-0.06); Absolute Basophil Count 0.01 10^3/uL (0.0-0.2); Absolute Eosinophil Count 0.23 10^3/uL (0.0-0.7); Absolute Monocyte Count 0.49 10^3/uL (0.1-0.8); Absolute Neutrophil Count 3.17 10^3/uL (1.2-6.7); Basophils % 0.2; Eosinophils % 4.9; HCT 44.1 % (40.0-50.0); HGB 14.8 g/dL (13.5-17.5); Immature Grans % 0.2; MCH 29.2 pg (27.0-33.0); MCHC 33.6 % (32.0-36.0); MCV 87 fL (80-95); MPV 8.4 fL (8.0-11.0); Monocytes % 10.4; Neutrophils % 67.3; Platelet Count 222 10^3/uL (130-400); RBC 5.07 10^6/uL (4.36-5.78); RDW 13.1 % (11.8-14.1); RDW-SD 41.6 fL; WBC 4.71 10^3/uL (4.4-10.8)
[2023-03-25 09:56] LABS: ALT 52 U/L (16-63); AST 32 U/L (15-37); Albumin 4.2 g/dL (3.4-5.0); Alkaline Phosphatase 55 U/L (46-116); Anion Gap 7.4 mmol/L (3-11); BUN 11 mg/dL (7-18); Bilirubin, Total 0.7 mg/dL (0.2-1.0); CO2 29.6 mmol/L (21.0-32.0); CREATININE 0.9 mg/dL (0.70-1.30); Calcium 9.2 mg/dL (8.5-10.1); Chloride 105 mmol/L (98-107); Cholesterol 176 mg/dL (<200); Estimated GFR 95.97 (mL/min/1.73m2); Glucose 99 mg/dL (74-106); HDL Cholesterol 109 mg/dL (40-60); Potassium 4.3 mmol/L (3.5-5.1); Sodium 142 mmol/L (136-145); Total Protein 7.1 g/dL (6.4-8.2)
[2023-03-25 09:57] LABS: Triglyceride < 25 mg/dL (<150)
[2023-03-25 10:12] LABS: LDL CHOLESTEROL 55 mg/dL (<100)
== END 2023-03-25 01:13 | disposition home or self-care (01) ==
LOC: LBO 01:12
PROVIDERS: PCP Nurse Practitioner Family; Referring Provider Nurse Practitioner Family; Visit Provider Nurse Practitioner Family
DX: K76.0 Fatty (change of) liver, not elsewhere classified (principal); E78.5 Hyperlipidemia, unspecified; I10 Essential (primary) hypertension
CPT/HCPCS: 36415; 80053; 80061; 83721; 85025

== ENCOUNTER → 2023-09-13 16:55 | Outpatient (CLI) | payer OTHER, SELFPAY ==
--- NOTE | 2023-09-13 15:00 | DI.RAD_ITS ---
Exam(s) XR HIP RT COMPLETE AP PELVIS EXAM: XR HIP RT COMPLETE AP PELVIS CLINICAL HISTORY: PAIN IN RT [id number]. TECHNIQUE: 2D digital imaging was performed. COMPARISON: No exams were available for comparison FINDINGS: Two views. There is no evidence of pelvic nor hip fracture. However, there are significant degenerative changes in the right hip including uniform joint space narrowing-moderate and small marginal osteophytes. M ilder degenerative changes in the opposite-left hip. Bone density normal. No osseous lesions. Disc space narrowing in the lower lumbar spine incidentally noted. IMPRESSION: Degenerative changes in the hip. DATA REPOSITORY: RADIATION DOSE DELIVERED:
== END ==
PROVIDERS: PCP Nurse Practitioner Family; Visit Provider Nurse Practitioner
DX: M16.11 Unilateral primary osteoarthritis, right hip (principal)
CPT/HCPCS: 73502

== ENCOUNTER 2023-10-13 11:02 | Outpatient (CLI) | payer OTHER, SELFPAY ==
--- NOTE | 2023-10-13 08:30 | DI.RAD_ITS ---
Exam(s) XR PELVIS AP EXAM: XR PELVIS AP CLINICAL HISTORY: R THR Planning. TECHNIQUE: 2D digital imaging was performed. Single AP view. COMPARISON: No exams were available for comparison FINDINGS: BONES: No acute fracture is present. No bony destructive lesion is seen. JOINTS: No dislocation present. Stable appearance bilateral hip joint space narrowing and periarticul ar spurring, right greater than left. SOFT TISSUE: Vascular calcifications. IMPRESSION: Moderate to severe degenerative changes of both hips, right greater than left. DATA REPOSITORY: RADIATION DOSE DELIVERED:
== END 2023-10-13 11:03 | disposition home or self-care (01) ==
LOC: DIORS 11:03
PROVIDERS: PCP Nurse Practitioner; Visit Provider Physician Assistant
DX: M16.11 Unilateral primary osteoarthritis, right hip (principal); M16.12 Unilateral primary osteoarthritis, left hip
CPT/HCPCS: 72170

== ENCOUNTER 2023-11-07 05:01 | Outpatient (CLI) | payer OTHER, SELFPAY ==
[2023-11-07 11:17] LABS: HCT 42.3 % (40.0-50.0); HGB 14.2 g/dL (13.5-17.5); MCHC 33.6 % (32.0-36.0); MCV 87 fL (80-95); MPV 8.4 fL (8.0-11.0); Platelet Count 222 10^3/uL (130-400); RBC 4.89 10^6/uL (4.36-5.78); RDW 12.9 % (11.8-14.1); WBC 5.28 10^3/uL (4.4-10.8)
[2023-11-07 11:43] LABS: Anion Gap 6.3 mmol/L (3-11); BUN 12 mg/dL (7-18); CO2 30.7 mmol/L (21.0-32.0); Calcium 9.2 mg/dL (8.5-10.1); Chloride 103 mmol/L (98-107); Estimated GFR 84.05 (mL/min/1.73m2); Glucose 104 mg/dL (74-106); Potassium 4.1 mmol/L (3.5-5.1); Sodium 140 mmol/L (136-145)
== END 2023-11-07 05:02 | disposition home or self-care (01) ==
LOC: LBO 05:01
PROVIDERS: PCP Nurse Practitioner; Visit Provider Student in an Organized Health Care Education/Training Program
DX: M16.11 Unilateral primary osteoarthritis, right hip (principal); Z01.818 Encounter for other preprocedural examination
CPT/HCPCS: 36415; 80048; 85027

== ENCOUNTER 2023-11-24 05:59 | Day surgery (SDC) | payer OTHER, SELFPAY ==
--- NOTE | 2023-11-23 18:20 | ANES.PREOP_ITS ---
General Info Date of Service Date Performed: 11/24/23 Height: 5 ft 9 in Weight: 75.75 kg Body Mass Index (BMI): 24.6 Surgical Procedure: Operation Date: 11/24/23 07:50 Proposed Procedure Side Surgeon p Hip Total Hip Anterior, ACTIS High, +4 Acetabular Liner Right Kelvin Mejias MD Meds Allergies and Home Medications Allergies Allergy/AdvReac Type Severity Reaction Status Date / Time No Known Allergies Allergy Verified 11/24/23 06:32 Home Medication Medication Instructions Recorded amlodipine 10 mg tablet 10 mg PO DAILY #90 tab-caps 02/09/23 atorvastatin 40 mg tablet (Lipitor) 40 mg PO DAILY #90 tab-caps 02/09/23 tamsulosin 0.4 mg capsule 0.4 mg PO DAILY #90 tab-caps 02/09/23 acetaminophen 500 mg capsule 1,000 mg PO BID PRN 03/31/23 ibuprofen 600 mg tablet 600 mg PO TID PRN pain #60 tab-caps 03/31/23 celecoxib 200 mg capsule 200 mg PO BID #60 caps 11/07/23 Current Visit Medications: Current Medications Generic Name Dose Route Start Last Admin Trade Name Freq PRN Reason Stop Dose Admin Acetaminophen 1,000 mg 11/24/23 06:00 Acetaminophen 500 Mg Tab PO 11/24/23 18:00 PREOP CR Celecoxib 400 mg 11/24/23 06:00 Celecoxib 200 Mg Cap PO 11/24/23 18:00 PREOP CR Tranexamic Acid 1,000 mg/ 60 mls @ 360 mls/hr 11/24/23 06:00 Sodium Chloride IV 11/24/23 18:00 PREOP [facility] Ringer's Solution 1,000 mls @ 80 mls/hr 11/24/23 06:00 IV 11/27/23 23:59 INFUSION CR Cefazolin Sodium/Dextrose 2 gm in 50 mls @ 100 mls/hr 11/24/23 06:00 Ancef Duplex IVPB 11/24/23 23:59 PREOP CR IV Miscellaneous Supplies 1 each 11/24/23 06:00 Iv Access IV 11/27/23 23:59 DIRECTED CR Sodium Chloride 0 ml 11/24/23 06:00 Normal Saline Flush 10 Ml Syr IV 11/27/23 23:59 PRN PRN Sodium Chloride 0 ml 11/24/23 06:00 Normal Saline 10 Ml Vial IJ 11/27/23 23:59 DIRECTED PRN Sterile Water 0 ml 11/24/23 06:00 Water,Injection,Sterile 10 Ml Vial IJ 11/27/23 23:59 DIRECTED PRN PFSH Active Problems Active Problems: Problem Status Onset Code Osteoarthritis of right hip M16.11 History of colon polyps Z86.010 Hyperlipidemia Benign prostatic hyperplasia with lower urinary tract symptoms 03/18/17 N40.1 Chronic low back pain 10/01/14 M54.5, G89.29 Essential hypertension 10/07/15 I10 Hepatic steatosis K76.0 Erectile dysfunction N52.9 Medical History Medical History Heavy alcohol use Hepatitis C (10/01/14) Genotype 1, acquired late 1969's; Liver bx: chronic hepatitis C stage 3/4, grade 2/4 (mild activity) and steatofibrosis; S/p 48 wk rx end 08/2010 with SVR Hyperplastic colon polyp Thoracic compression fracture Tubular adenoma of colon Surgical History Surgical History Hx of colonoscopy (~08/2022) Status post shoulder surgery (~1986) Shane Cr shoulder RTC. Dr. Persaud did shoulder replacement 17 years later Tobacco Smoking/Tobacco Use Status: Never Passive smoking exposure: No Alcohol Alcohol Intake: current Alcohol intake frequency: a few times a week Alcohol type: beer Substance Use Substance use: Never Substance use type: does not use Vital Signs and Lab Results Vital Signs Most Recent Vital Signs in EMR: Temp Pulse Resp BP Pulse Ox 36.7 C 61 16 173/93 H 98 11/24/23 06:34 11/24/23 06:34 11/24/23 06:34 11/24/23 06:34 11/24/23 06:34 Lab Results Blood Type / Crossmatch: No Data to Display Complete Blood Count: White Blood Count 5.28 10^3/uL (4.4-10.8) 11/07/23 11:11 Red Blood Count 4.89 10^6/uL (4.36-5.78) 11/07/23 11:11 Hemoglobin 14.2 g/dL (13.5-17.5) 11/07/23 11:11 Hematocrit 42.3 % (40.0-50.0) 11/07/23 11:11 Platelet Count 222 10^3/uL (130-400) 11/07/23 11:11 Complete Metabolic Panel: Sodium 140 mmol/L (136-145) 11/07/23 11:11 Potassium 4.1 mmol/L (3.5-5.1) 11/07/23 11:11 Chloride 103 mmol/L (98-107) 11/07/23 11:11 Carbon Dioxide 30.7 mmol/L (21.0-32.0) 11/07/23 11:11 BUN 12 mg/dL (7-18) 11/07/23 11:11 Creatinine 1.0 mg/dL (0.70-1.30) 11/07/23 11:11 Est GFR (CKD-EPI 2020) 84.05 (mL/min/1.73m2) 11/07/23 11:11 Calcium 9.2 mg/dL (8.5-10.1) 11/07/23 11:11 Glucose 104 mg/dL (74-106) 11/07/23 11:11 Liver Function Panel: No Data to Display Coagulation Panel: No Data to Display Cardiac Panel: No Data to Display Arterial Blood Gas: No Data to Display Venous Blood Gas: No Data to Display Pancreas Panel: No Data to Display Thyroid Panel: No Data to Display Infectious Disease: No Data to Display Blood Cultures: No Data to Display Toxicology Panel: No Data to Display Anesthesia Assessment and Plan Anesthesia History Personal History: No History of Anesthesia Complications Family History: No Family History of Anesthesia Complications Exercise Tolerance Exercise Tolerance: Metabolic Equivalents>4 Cardiac & Pulmonary Exam Cardiac Exam: Normal S1/S2 Heart Sounds Pulmonary Exam: Clear Bilateral Breath Sounds Implantable Cardiac Device Does patient have a Pacemaker or an ICD?: No Airway Exam Known Difficult Airway: No Mallampati Class: 3 Mouth Opening: Normal (> 3cm) Thyromental Distance: Greater than 3 cm Neck Range of Motion: Full ROM Neck Circumference: Normal Teeth Condition: Normal Dentition Airway Comments: High angle narrow palate ASA Classification ASA Score: ASA 2 Emergency Case?: No NPO Status NPO Status: NPO Clears >2 hours, Solids >8 hours Anesthesia Plan Resuscitation Status: Full Code Anesthesia Technique: Spinal Anesthesia Airway Planned: Natural Airway Monitors Used: Standard Monitors Preoperative Comments:: 63 yo male for KATIE. Sig PMHx: HTN (amlodipine), low back pain/thoracic compression fx, BPH, hepatic steatosis. Previous Anes: - colo x 2, prop, natural airway, no issues.
[2023-11-24] VITALS (11 sets, daily range): BP systolic 94–173; BP diastolic 50–93; PULSE 52–67; RESP 12–19; TEMP 36.3–37; O2SAT 92–98; BMI 24.6
[2023-11-24] MEDS: Celecoxib 200 MG CAP 400 MG PO (06:41)
[2023-11-24] MEDS: Lactated Ringers 1,000 ML 80 ML IV (06:41)
[2023-11-24] MEDS: Acetaminophen 500 MG TAB 1000 MG PO (06:42)
--- NOTE | 2023-11-24 07:24 | W.PM.DS.N ---
Date of service: 11/24/23 Time of Service: 07:28 DS: Diagnosis Discharge Diagnosis (1) Osteoarthritis of right hip: Status: Chronic Discharge Plan Disposition Patient Disposition: HOME Condition: Good Discharge Details Reason For Visit: Right hip DJD Attending Provider: Kelvin Mejias Primary Care Provider: Kerrie Swanson Home Meds and New Rx's Prescriptions: New celecoxib [Celebrex] 200 mg capsule 200 mg PO BID PRNQty: 60 0RF Rx Instructions: Take one tablet twice daily for pain and inflammation aspirin 81 mg tablet,delayed release (DR/EC) 81 mg PO BID 30 Days Qty: 60 0RF acetaminophen 500 mg tablet 1,000 mg PO Q8H PRN Qty: 90 0RF Rx Instructions: Take two tablets up to every 8 hours as needed for pain pantoprazole 40 mg tablet,delayed release (DR/EC) 40 mg PO DAILY Qty: 14 0RF dexamethasone 4 mg tablet 4 mg PO DAILY Qty: 2 0RF Rx Instructions: Take one tablet once daily for two days docusate sodium [Colace] 100 mg capsule 100 mg PO BID Qty: 30 0RF oxycodone 5 mg tablet 5 mg PO Q6H PRNQty: 12 0RF Rx Instructions: Take one tablet up to every 6 hours as needed for severe postoperative pain Continued amlodipine 10 mg tablet 10 mg PO DAILY Qty: 90 3RF atorvastatin [Lipitor] 40 mg tablet 40 mg PO DAILY Qty: 90 3RF tamsulosin 0.4 mg capsule 0.4 mg PO DAILY Qty: 90 3RF Discontinued acetaminophen 500 mg capsule 1,000 mg PO BID PRN Rx Instructions: Limit to 2G /day due to liver dz ibuprofen 600 mg tablet 600 mg PO TID PRN (Reason: pain) Qty: 60 0RF celecoxib 200 mg capsule 200 mg PO BID Qty: 60 0RF Discharge Instructions Additional Instructions: Total Hip Discharge Instructions Activity: The most important activity is to walk. You should try to take short walks a few times a day. You have no restrictions on movement or positioning, but do not try to force what you do. You will find some stiffness and weakness with hip flexion (lifting your knee). Do not try to strengthen this too early, continue to practice walking and stairs and this will come. - Outpatient physical therapy can be helpful to help return you to a normal gait and improve your flexibility and strength. This can start around 2 weeks. For some patients, it?s not necessary. Usually this is determined at the time of discharge or at the first post-operative visit. - You should wear the DYLAN hose on both legs for 2 weeks. Dressing: Keep the surgical dressing in place for at least one week. After the first week it may be removed and replace with light gauze and tape or nothing. It may get wet after 3 days but avoid soaking the dressing. If it gets wet, just lightly pat dry. It is important to always keep some gauze between skin folds, especially when you are sitting. Spend some time with the wound exposed when you are lying flat as the incision does wrinkle onto itself. Medications: - You should take Tylenol and an anti-inflammatory Celebrex as your primary pain control medications. If the Celebrex is too expensive or not covered, please call the office for another alternative (Advil/Ibuprofen or Naproxen/Aleve). - You have been prescribed a stronger pain medication Oxycodone for breakthrough pain, take as needed as prescribed. - You have also been prescribed a stomach acid reduction agent Pantoprozole to help reduce stomach acid and reflux. - You have also been prescribed Decadron to help with post-operative nausea and pain. You will take this for two days starting tomorrow. - You will be taking Aspirin 81mg twice a day for DVT prevention unless instructed otherwise. - If you have constipation you should take Colace (which has been prescribed) or Miralax (which is available [id number]). It takes most people 3-4 days to have a bowel movement. Follow-up: 2 weeks If you have any acute concerns or questions, please do not hesitate to contact the office at [phone]. You may contact Dr. Mejias with any questions after hours through the hospital at [phone] or on his cell phone at [phone]. Stand Alone Forms: Anesthesia Discharge InstFlaco, Trell Aiken (DSU) Referrals: Kelvin Mejias MD [ [facility] STAFF PHYSICIAN] - Equipment/Supplies: Walker Activity:: Elevate Remove Dressings/Wound Care:: Do Not Remove Shower/Bathe:: 72 hours and Cover Diet:: As Tolerated Discharge Data Discharge Date/Time-TO BE ENTERED AT DEPARTURE: 12/28/23 12:45 DS: Summary Time Spent with Patient providing and/or coordinating discharge services: Less than 30 minutes Status at Discharge Functional status at discharge: uses cane/walker Overall status at discharge: patient is progressing back to baseline Mental Status: mental status grossly normal Speech and Movement: speech and movement normal Mood: congruent mood Affect: normal affect Exam Psych Mental Status: mental status grossly normal Speech and Movement: speech and movement normal Mood: congruent mood Affect: normal affect DS: Data Vitals/I&O Vitals and I&O: Vital Signs Temperature 98.1 F 11/24/23 06:34 Pulse 61 11/24/23 06:34 Pulse Rhythm Regular 11/24/23 06:34 Respiratory Rate 16 11/24/23 06:34 Respiratory Depth Normal 11/24/23 06:34 Blood Pressure 173/93 H 11/24/23 06:34 Pulse Oximetry 98 11/24/23 06:34 Oxygen Delivery Method Room Air 11/24/23 06:34 Oxygen Flow Rate 0 11/24/23 06:34 Pain Level 4 11/24/23 06:34 Intake & Output 11/23/23 11/23/23 11/24/23 11:59 23:59 11:59 Weight 167 lb 0.002 oz 165 lb 2.02 oz PFSH All Active Problems (Updated 11/24/23 @ 07:25 by Rachel Garcia) Osteoarthritis of right hip (Chronic) History of colon polyps (Acute) Hyperlipidemia (Chronic) Benign prostatic hyperplasia with lower urinary tract symptoms (Chronic 03/18/17) Chronic low back pain (Chronic 10/01/14) Essential hypertension (Chronic 10/07/15) Hepatic steatosis (Chronic) 03/2023 labs: FIB-4 score = 1.26, cirrhosis less likely Erectile dysfunction (Chronic) Medical History Heavy alcohol use Hepatitis C (10/01/14) Genotype 1, acquired late s; Liver bx: chronic hepatitis C stage 3/4, grade 2/4 (mild activity) and steatofibrosis; S/p 48 wk rx end 08/2010 with SVR Hyperplastic colon polyp Thoracic compression fracture Tubular adenoma of colon Surgical History Hx of colonoscopy (~08/2022) Status post shoulder surgery (~1986) Shane Cr shoulder RTC. Dr. Persaud did shoulder replacement 17 years later Family History Mother Colon cancer Father Diabetes Alcohol abuse Essential hypertension Cancer Throat Brother Stroke Sister Multiple sclerosis Social History Smoking/Tobacco Use Status: Never Smoking risk assessment performed?: Yes Alcohol Intake: current Alcohol Intake frequency: a few times a week Alcohol type: beer Counseling given: Yes Drug use: Never Substance use type: does not use Adopted: No Caregiver/Support person: No Foster care: No Household members: spouse Housing: house Number of Children: 2 number of grandchildren: 2 Communication Needs: None Education Level: high school Do you need help understanding health information?: Rarely current occupation: [employer] Pets and animals: Yes Pets and animals: dog(s) Sexually active: Yes Do you think of yourself as: straight/heterosexual Current gender identity: male What is your relationship status?: How often do you talk on the phone with friends or family?: three or more times per week How often do you get together with friends or relatives?: three or more times per week Do you belong to any clubs or organized social groups?: no Panel score (0-1 are the most socially isolated patients): 2 What type of physical activity do you participate in: regular exercise Frequency: daily Special neha needs: No Seatbelt use: always Helmet use: Yes Drive intox or ride w/intox driver license agent: No Working smoke detector in home: Yes Fire extinguisher in home: Yes Carbon monox detector in home: Yes Firearms in home: Yes Do you feel safe at home: Yes Do you feel safe in your relationship?: Yes Time Spent with Patient Time Spent with Patient: <45 minutes Time was spent: preparing to see the patient(eg.review tests), ordering medications,tests, procedures, indepentently interpreting results and counseling the patient
[2023-11-24] MEDS: ceFAZolin 2 GM/50 ML BAG IVPB (07:43)
--- NOTE | 2023-11-24 08:50 | DI.RAD_ITS ---
Exam(s) XR HIP RT IN OR EXAM: XR HIP RT IN OR CLINICAL HISTORY: right hip osteoarhtiritis. TECHNIQUE: 2D and realtime digital imaging was performed. COMPARISON: CR XR PELVIS AP from 10/13/2023 FINDINGS: Hard copy image shows placement of a right hip prosthesis. The components show satisfactory alignmen t. Please see procedure note for details. Fluoro time: 29.2seconds RADIATION DOSE DELIVERED: Ka,r=2.82 mGy
--- NOTE | 2023-11-24 09:15 | W.BRIEF ---
Date of service: 11/24/23 Time of Service: 08:00 Brief Operative Note Procedure/Pre-Op Diagnoses: Operation Date: 11/24/23 07:50 Actual Procedures p Hip Total Hip Anterior, ACTIS High, +4 Acetabular Liner(Right) - Kelvin Mejias MD Pre-Op Diagnosis: osteoarthritis right hip Post-Op Diagnosis: osteoarthritis right hip Estimated Blood Loss Output, Estimated Blood Loss 150 Amount Complications Complications: None
--- NOTE | 2023-11-24 09:15 | W.PM.OP ---
Date of service: 11/24/23 Time of Service: 08:00 Operative Note Operative Note DATE OF PROCEDURE: 11/24/23 PRE-OP DIAGNOSIS: Right Hip Osteoarthritis POST-OP DIAGNOSIS: same PROCEDURE: Right Anterior Total Hip Arthroplasty with Intraoperative Navigation SURGEON: Kelvin Mejias IT INTEGRATION ARCHITECT: Rachel Garcia ANESTHESIA TYPE: Spinal Refer to Anesthesia Record ESTIMATED BLOOD LOSS: 150 PATHOLOGY: none sent TOURNIQUET TIME: 0 COMPLICATIONS: None Patient was transported to: PACU Patient's condition: stable Implants: 1. Depuy [place] Acetabular Component, 56mm 2. Depuy Acetabular Liner, [id number], +4mm lateralized 3. Depuy Actis High Offset Collared Femoral Stem, Size 5 4. Depuy Altrx Ceramic Femoral Head, Size 36+8.5mm Indications: I have seen Xuan in clinic for symptoms of hip arthritis, confirmed with radiographic findings. He has exhausted nonoperative methods and was having significant limitations in daily function and desired better function and less pain. I discussed the technical details of a hip replacement. I explained the risks of the procedure to include, but not limited to, bleeding, infection, pain, stiffness, fracture, damage to nerves and vessels, damage to muscles and tendons, loosening, instability, leg length inequality, need for repeat procedure, blood clot and cardiopulmonary demise. Despite these risks, Marcelo elected to proceed. Findings: There was significant signs of arthritis throughout the hip. Procedure Description: Marcelo was greeted in the preoperative holding area where the correct side was identified and marked. The consent was reviewed with the patient and signed. The history and physical was updated. All questions were answered. He was taken back to the operating room. A spinal anesthestic was then administered. The feet were wrapped with cast padding and Coban and then placed into the boot liners and then into the boots. Care was taken to protect the skin and make sure the heels were fully down and the boots were stable. The patient was then positioned onto the HANA table. Both legs were held in a neutral position. SCDs were applied. The patient was then slid down onto a peroneal post. Prophylactic antibiotics in the form of Cefazolin were administered. 1g of Tranxemic Acid was given intravenously within 30 minutes of incision. The right leg was then prepped with Chloraprep and draped in a standard fashion. A second prep with Chloraprep was performed prior to placement of a shower-curtain type drape with Iodine impregnated skin protection. A timeout to confirm correct identity, side and site, procedure, allergies, anesthesia, and medical concerns was performed. An obliquely oriented incision was made starting lateral to the ASIS and running distal over the Tensor Fascia Gina (TFL) muscle belly toward the fibular head, approximately 10cm. The skin and soft tissue was dissected sharply, through Desean?s fascia, and to the fascia of the TFL. With the fascia and superior border of the IT band identified, the fascia was incised with a new knife just above any perforators from the IT band. The TFL muscle belly was bluntly dissected away from the fascia and moved laterally. The fat between TFL and rectus was identified to ensure the dissection was not within the TFL. Blunt dissection created space between abductors and the capsule and retractor was placed over the lateral femoral neck. The fibers of the rectus femoris tendon were identified and these were freed from the anterior capsule. A second cobra retractor was placed around the medial femoral neck. The TFL was further retracted laterally to show the deep fascia. Careful dissection through this layer identified three main crossing vessels of the lateral femoral circumflex. These were cauterized in multiple locations and then cut without any noticeable bleeding. The TFL was further released bluntly from the deep fascia to expose anterior hip capsule and fat The Joe orthopaedic retractor was then placed beneath the TFL and against sartorius and medial soft tissues to protect and retract the soft tissues. A T-capsulotomy was then performed starting at the superior lateral acetabulum and moving distally to the intertrochanteric ridge. These capsular flaps were tagged with a No. 1 Ethibond and elevated from within. The capsular flaps were released to the shoulder of the lateral neck and to the lesser trochanter to give excellent visualization of the proximal femur. A neck osteotomy was performed using an oscillating saw based on preoperative templates. This cut started in the shoulder and of the lateral neck and exited medially. The saw was at all times directed medially to avoid injury to the greater trochanter. Gross traction was applied to the leg and the osteotomy opened. The femoral head was removed with a corkscrew, making sure to protect the TFL on its exit. Traction was released after head removal. This was measured on the back table to determine the starting reamer size. Portions of the rectus obscuring visualization were minimally elevated off the superior acetabulum. An anterior retractor was placed over the anterior wall between capsule and labrum and attached to the Gripper retraction system. The femur was rotated to 90 degrees and medial capsule was fully released until the lesser trochanter was palpable and visible; the femur was returned to 30 degrees. A posterior retractor was placed similarly between capsule and labrum. This provided excellent visualization. The contents of the cotyloid fossa were removed with electrocautery and the labrum was removed with a knife. There was a notable floor osteophyte. There was significant chondromalacia of the superior acetabulum. Acetabular reaming began with a 52mm reamer. This first reaming was directed anterior to posterior and medial to get down to the true floor. This was inspected and reamed until the true floor was reached. The anterior retractor was then released and entry and exit was provided by traction on the capsular flaps. I then reamed sequentially up to a 56mm reamer where good fit was obtained. The larger reamers were oriented based on anatomical reference of the anterior and lateral santa to ensure proper abduction and anteversion. Positioning and size was confirmed with the fluoroscopy. A 56mm Depuy [place] acetabular component was selected. The acetabulum was reamed around the periphery with the selected acetabular size to prevent a rim fit. The deep tissues were irrigated. The acetabular component was then impacted in a position of about 40-45 degrees of abduction and 15-20 degrees of anteversion, using the patient?s anatomy as the ultimate landmark. Fluoroscopy was used to confirm this. There was excellent check viewer of the acetabular component and the inserting handle was removed. The acetabular liner, Depuy [id number] polyethylene liner, was inserted and lined up with the tines of the acetabular component. There was no soft tissue interposition. The liner was then impacted into position and confirmed to be well-seated. A portion of the shavon-articular cocktail was then injected around the acetabulum into the capsule and periosteum. This cocktail consisted of 123mg of Ropivacaine, 0.25mg of Epinephrine, 0.04mg of Clonidine, and 15mg of Ketorolac, diluted to 50cc. The leg was rotated to 120 degrees. Any remaining medial capsule was released until the lesser trochanter was easily palpable. A retractor was placed medially. The lateral capsule was further released into the shoulder to allow access to the greater trochanter. A Steven retractor was placed over the greater trochanter which allowed the trochanter to flip in front of the capsule for excellent exposure. The leg was brought down into maximal extension and 20 degrees of adduction while ensuring there was no impingement on the acetabulum. Any remnant capsule within the trochanter was released. Piriformis and obturator externis were identified and protected. There was excellent access to the proximal femur. The lateral neck remnant was removed with a rongeur. A blunt canal probe was used to identify the canal and trajectory for later broaching. A box osteotome initiated the broach course. A small curved rasp and a curved curette were used to work laterally. Broaching then began with a starter Actis broach. This was inserted manually around the trochanter and into the canal before mallet blows. The broach was seated to a few millimeters below the cut level based on the neck cut and the preoperative template. Sequential broaching was continued with the [id number] pneumatic broaching device until a tight fit was obtained with good rotational control of the femur. A trial high offset neck was inserted along with a +5 trial head. The leg was brought out of extension and adduction and then reduced with traction and internal rotation. The leg was stable anteriorly in a position of 30 degrees of extension and 90 degrees of external rotation. Fluoroscopy was used to ensure there was no fracture and the stem was seated well. Leg lengths were checked with an AP pelvis and pelvic reference points. [employer] navigation system was used to confirm appropriate positioning and leg length and offset. This undercorrected the offset and overcorrected leg length. Once content with the desired offset and leg lengths, the leg was brought back into extension, external rotation and adduction. The calcar was planed and the broach was then impacted another 4mm. Planing was performed again. The periosteum and surrounding tissue was injected with remaining portion of the shavon-articular cocktail. The proximal femur was irrigated as well as the deep tissues. The Depuy Actis high offset collared stem, size 5, was then manually inserted into the proximal femur making sure to control rotation. It was then malleted into position with light blows, giving breaks to allow bone expansion and decrease risk of fracture. The selected Depuy Altrx Ceramic Head, size 36+8.5mm, was then placed onto the clean and dry trunnion and secured with impaction onto the tapered fit. The leg was brought back out of extension and adduction and reduced with traction and internal rotation. Stability was confirmed with no shuck at 90 degrees of external rotation and 30 degrees of extension. No impingement through range of motion arc. Final x-ray images were obtained with fluoroscopy to confirm adequate positioning and no intraoperative fracture. The deep tissues were thoroughly irrigated with Surgiphor, betadine solution. This was allowed to sit in the wound for 3 minutes before being thoroughly irrigated out with normal saline. The capsule was then reapproximated with the previously placed Ethibond sutures. The TFL fascia was finally closed with a No. 2 Stratafix, barbed suture. Deep tissues were then reapproximated with 0 Vicryl and a running 2-0 Vicryl. The skin was closed with a running 4-0 Monocryl in a subcuticular fashion. This was reinforced with skin glue. A Mepilex silver dressing was applied. At the end of the case, all counts were correct. Marcelo was transferred to the hospital bed without difficulty and suffering no apparent complication. Marcelo has a good prognosis. Physical therapy will start today and without restrictions, weight-bearing as tolerated. Aspirin 81mg BID will be used for DVT prophylaxis.
--- NOTE | 2023-11-24 09:31 | W.ANESPOSTOP ---
Postoperative Evaluation Date, Time and Location Date Performed: 11/24/23 Time Performed: 09:31 Patient Location: PACU Vital Signs Most Recent Imported Vital Signs: Most Recent Vital Signs Temp Pulse Resp BP Pulse Ox 36.7 C 52 L 17 99/66 L 96 11/24/23 09:26 11/24/23 09:26 11/24/23 09:26 11/24/23 09:26 11/24/23 09:26 Pain Score Most Recent Pain Score: Most Recent Pain Score Pain Level [Right Hip] 4 11/24/23 06:34 Pain Level 4 11/24/23 09:26 Assessment Mental Status: Awake (Alert & Oriented to Patient Baseline) Airway and Respiratory Function: Patent airway with normal (patient baseline) respiratory exam Cardiovascular Function: Hemodynamically Stable Hydration Status: Adequately Hydrated Nausea & Vomiting: No Nausea or Vomiting Pain: Pain is tolerable per patient Peripheral Nerve Block: Patient did not receive a nerve block Postoperative Comments:: spinal still in slight effect.
[2023-11-24] MEDS: HYDROmorphone 2 MG/ML SYR IVP ×3 (09:36→10:11)
[2023-11-24] MEDS: Normal Saline 10 ML VIAL IJ (09:36)
[2023-11-24] MEDS: fentaNYL 100 MCG/2 ML VIAL IVP ×2 (09:51→10:02)
[2023-11-24] MEDS: oxyCODONE 5 MG TAB PO (11:03)
--- NOTE | 2023-11-24 11:17 | IN_ITS ---
PT Notes Visit Reasons: Right hip DJD Physical Therapy Day Surgery Initial Evaluation Date: 11/24/2023 Referring Doctor: RADHAMES Blackmon PT Orders: PT CONSULT: S/P Ortho Surgery Precautions: WBAT on the R LE with AD. Patient Profile/Admitting Diagnosis: Marcelo is 63-year-old female with degenerative joint disease of the R hip and is S/P R anterior hip arthroplasty on postoperative day 0. PMHX: Medical History Heavy alcohol use Hepatitis C (10/01/14) Genotype 1, acquired late ; Liver bx: chronic hepatitis C stage 3/4, grade 2/4 (mild activity) and steatofibrosis; S/p 48 wk rx end 08/2010 with SVR Hyperplastic colon polyp Thoracic compression fracture Tubular adenoma of colon Surgical History Hx of colonoscopy (~08/2022) Status post shoulder surgery (~1986) Shane Cr shoulder RTC. Dr. Persaud did shoulder replacement 17 years later Social History/Home Situation: Lives with in a private home with one-step to enter without rails. Independent with all aspects of ADLs prior to surgery. Contractor/builder. Equipment Owned/DME: None Subjective: Patient reports numbness an in the front part of his thigh. Reported being quea sy chcf through the walk which required short 10-minutes seated rest. Objective: General Observation: Mepilex Ag over surgical incision. TDS to be legs. present in room throughout session. Mental Status: A and O x 4. Pain: 2-3/10 in the R hip ROM: Right Lower Extremity: Hip flexion WFL. Hip abduction WFL. Knee flexion WFL. Ankle dorsiflexion WFL. Ankle plantarflexion WFL. Left Lower Extremity: Hip flexion WFL. Hip abduction WFL. Knee flexion WFL. Ankle dorsiflexion WFL. Ankle plantarflexion WFL. Strength: Right Lower Extremity: Hip flexors 4-/5. Hip abductors 4-/5. Knee flexors 4/5. Knee extensors 4-/5. Ankle dorsiflexors 5/5. Ankle plantarflexors 5/5. Left Lower Extremity:Hip flexors 5/5. Hip abductors 5/5. Knee flexors 5/5. Knee extensors 5/5. Ankle dorsiflexors 5/5. Ankle plantarflexors 5/5. Sensation: Numbness in anterior thigh and knee Bed Mobility/Transfers: Minimal cueing provided for use of B hands as needed for support, movement sequence, Ad management, and and posture to reduce fall risk and minimize pain report Supine to sit stand by assist Sit to stand contact guard assist with FWW Stand to sit contact guard assist with FWW Bed to chair contact guard assist with FWW Gait: Facilitated safe and correct performance of level surface ambulation covering a distance of 150 feet using front-wheeled walker with step-to gait pattern requiring contact-guard assist and minimal verbal cueing for correct movement sequence, AD management, and directional changes. No SOB. No LOB. Stairs: Guided patient with safe and correct negotiation of 6 x 4 inch steps holding onto bilateral rails with step to gait pattern requiring only standby assist and minimal verbal cueing for correct movement sequence and overall safety. Balance: Static Sitting: Normal Dynamic Sitting: Normal Static Standing: Fair Dynamic Standing: Fair Special Tests: Mobility Limitations Standardized Measure. [facility] AM-PAC 6 clicks Basic Mobility Inpatient Short Form: Raw Score: 22. Regular CMS Score: 21% deficit which Informed Consent/Education: Patient instructed in purpose of PT consult. Packet containing KATIE exercise protocol has been given to patient. Education and training on initial set of exercises that can be done at home have been completed with patient. Trained patient with correct performance of exercises below to maximize motor control, joint flexibility, soft tissue extensibility of the R hip musculature to facilitate return to independent functional mobility performance. Access Code: [email or web address] URL: [email or web address] Date: 11/24/2023 Prepared by: Raina Vance Exercises - Gluteal Sets - 1 x daily - 7 x weekly - 1 sets - 10 reps - 5 hold - Supine Heel Slide - 1 x daily - 7 x weekly - 1 sets - 10 reps - 5 hold - Supine Ankle Pumps - 1 x daily - 7 x weekly - 1 sets - 10 reps - 5 hold - Seated March - 1 x daily - 7 x weekly - 1 sets - 10 reps - 5 hold - Seated Long Arc Quad - 1 x daily - 7 x weekly - 1 sets - 10 reps - 5 hold Assessment: Patient requires the use of a front wheeled walker for all mobility ADL performance to maximize independence and reduce fall risk. Needed a 10-minute seated rest due to increased queasiness that subsided and allowed for completion of mobility assessment. Patient presents with clinical signs and symptoms consistent with current/admitting diagnoses that have resulted to mobility limitations, gait instability, generalized weakness, and impairment of motor control as demonstrated by the following impairment level findings: 1. Decreased strength to right hip major muscle groups 2. Impaired standing balance Impairments are contributing to the following functional limitations: 1. Inability to safely ambulate without assistive device 2. Increase completion time for mobility ADL performance 3. Increased fall risk Patient is assessed as a 76611 moderate complexity based on the following: History: 63-year-old male with impairment level findings, functional limitations, and past medical history as indicated above Examination: Demonstrable impairment in strength, balance, and mobility level with underlying impairments and functional limitations as documented above Presentation: Evolving Decision Makin moderate complexity Goals: N/A. PT evaluation and 1-2 treatment sessions only for functional mobility training using recommended AD and for HEP instruction. Plan of Care/Treatment Plan: N/A. PT evaluation and 1-2 treatment session only for functional mobility training using recommended AD and for HEP instruction. DISCHARGE RECOMMENDATIONS: Home when medically cleared by orthopedic surgeon. Recommend outpatient PT services in order to optimize functional mobility outcomes and facilitate return to independent community ambulation without an assistive device. TREATMENT CODE/TIME: 97770 x 20 minutes , 98782 x 19 minutes for 1 unit beginning at 11:17 AM. Thank you for the opportunity to participate in the care of this patient. Please sign an return this page within 30 days if you agree with the above POC. Thank you! Physician Signature Date [facility]
--- NOTE | 2023-11-24 11:25 | NUR.NOTE ---
Denia from PT is at bedside for assessment, pt is participating family at bedside.
== END 2023-11-24 12:45 | disposition home or self-care (01) ==
PROVIDERS: PCP Nurse Practitioner; Visit Provider Student in an Organized Health Care Education/Training Program
PROC: (CPT 27130; principal; 2023-11-24 07:30)
DX: M16.11 Unilateral primary osteoarthritis, right hip (principal); I10 Essential (primary) hypertension
CPT/HCPCS: 27130; 20985; 97162; 97530; 73501; C1776; J0690; J1100; J2250; J2405; J2704; J3010

== ENCOUNTER 2023-12-08 15:12 | Outpatient (CLI) | payer OTHER, SELFPAY ==
--- NOTE | 2023-12-08 10:00 | DI.RAD_ITS ---
Exam(s) XR HIP RT COMPLETE AP PELVIS EXAM: XR HIP RT COMPLETE AP PELVIS CLINICAL HISTORY: 1ST POST OP S/P R KATIE. TECHNIQUE: 2D digital imaging was performed. COMPARISON: CR XR PELVIS AP from 10/13/2023 FINDINGS: 3 views Stable position alignment of the components of the recently placed right hip prosthesis. No fracture or loosening evident. IMPRESSION: Stable satisfactory appearance DATA REPOSITORY: RADIATION DOSE DELIVERED:
== END 2023-12-08 15:13 | disposition home or self-care (01) ==
LOC: DIORS 15:14
PROVIDERS: PCP Nurse Practitioner; Visit Provider Physician Assistant
DX: Z96.641 Presence of right artificial hip joint (principal); Z47.1 Aftercare following joint replacement surgery
CPT/HCPCS: 73502

== ENCOUNTER 2024-12-26 10:07 | Emergency (ER) | payer MEDICARE, SELFPAY ==
[2024-12-26 10:11] VITALS: BP 149/81; PULSE 83; RESP 15; TEMP 36.9; O2SAT 95
--- NOTE | 2024-12-26 10:12 | W.ED.GENAD ---
Discharge Plan Disposition Patient Disposition: Home Condition: Good Discharge Details Clinical Impression: Influenza A, COVID-19 Primary Care Provider: Kerrie Swanson ED Provider: Roxanne Rao Home Meds and New Rx's Prescriptions: Continued amlodipine 10 mg tablet 10 mg PO DAILY Qty: 90 3RF tamsulosin 0.4 mg capsule 0.4 mg PO DAILY Qty: 90 3RF atorvastatin [Lipitor] 40 mg tablet 40 mg PO DAILY Qty: 90 3RF celecoxib [Celebrex] 200 mg capsule 200 mg PO BID PRN (Reason: pain) Qty: 60 3RF Rx Instructions: Take one tablet twice daily for pain and inflammation acetaminophen 500 mg tablet 1,000 mg PO Q8H PRN Qty: 90 0RF Rx Instructions: Take two tablets up to every 8 hours as needed for pain Discharge Instructions Additional Instructions: You have tested positive for flu A and COVID. Please note that this is very contagious, be sure to isolate at home to avoid spreading this to others. Practice good handwashing. Practice good deep breathing to prevent development of pneumonia. Stay well-hydrated. I encourage you to use saline nasal spray and a humidifier at bedside. Return to emergency care if you develop new fevers or worsening cough after initial improvement of symptoms, difficulty breathing, new chest pains, are unable to hold down fluids/think you are becoming dehydrated, or if you are very worried and need to be rechecked again immediately. Referrals: Kerrie Swanson, AUDITOR INTERNAL [Primary Care Provider] - [facility] General Date/Time Provider Initiated Documentation: 12/26/24 10:12. HPI Narrative: Marcelo is a 64year old male who presents to the emergency department today for evaluation of cough with anterior chest heaviness. He reports that he was sick with COVID 3 weeks ago (fatigue, body aches), symptoms mostly resolved but fatigue and worsened tinnitus (has at baseline) has persisted. 3 days ago Marcelo was drilling a hole in a tile ceiling, and [place] of this. Since then he has had cough, anterior chest heaviness, upper airway congestion with postnasal drip, nausea. Denies associated fever/chills, diaphoresis, dizziness, radiation of pain, obvious aggravating relieving factors, abdominal discomfort, change in p.o. intake, change in bowel bladder function, calf redness/swelling/tenderness, pedal edema. No history of blood clots, malignancy, recent surgery, or hormone use. Past medical history is significant for HTN, HLD, BPH, and hepatic steatosis. He drinks 3-4 beers 4 times a week. Denies tobacco or marijuana use. Physical exam reassuring. Marcelo is alert and oriented, no acute distress. No obvious JVD or pedal edema. Easy work of breathing, lung sounds clear bilaterally. Occasional dry cough. Moist mucous membranes. No calf swelling/tenderness or pedal edema. D/dx includes but is not limited to: Pneumonia, viral illness such as flu, CHF, ACS, bronchitis. I independently interpreted the following tests: CBC notable for mild leukopenia, white cell count 4.29. CMP, magnesium reassuring. Initial troponin 45, followed by 1 hour troponin of 43. Flu A + and COVID +. CXR negative, no obvious infiltrate- this was confirmed by radiologist. Cardiac workup reassuring. Overall workup c/w viral illness (flu and COVID). Antiviral therapy not indicated based on timeline. Reviewed discharge instructions with patient, including symptomatic management and red flags indicating need for return to emergency care Related Data Home Medications ?Medication ?Instructions ?Recorded ?Confirmed acetaminophen 500 mg tablet 1,000 mg (2 x 500 mg) PO Q8H PRN 11/24/23 12/26/24 pain #90 tabs atorvastatin 40 mg tablet (Lipitor) 40 mg PO DAILY #90 tab-caps 02/08/24 12/26/24 amlodipine 10 mg tablet 10 mg PO DAILY #90 tab-caps 02/27/24 12/26/24 tamsulosin 0.4 mg capsule 0.4 mg PO DAILY #90 tab-caps 02/27/24 12/26/24 celecoxib 200 mg capsule (Celebrex) 200 mg PO BID PRN pain #60 caps 07/09/24 12/26/24 Previous Rx's ?Medication ?Instructions ?Recorded acetaminophen 500 mg tablet 1,000 mg (2 x 500 mg) PO Q8H PRN 11/24/23 pain #90 tabs atorvastatin 40 mg tablet (Lipitor) 40 mg PO DAILY #90 tab-caps 02/08/24 amlodipine 10 mg tablet 10 mg PO DAILY #90 tab-caps 02/27/24 tamsulosin 0.4 mg capsule 0.4 mg PO DAILY #90 tab-caps 02/27/24 celecoxib 200 mg capsule (Celebrex) 200 mg PO BID PRN pain #60 caps 07/09/24 Allergies Allergy/AdvReac Type Severity Reaction Status Date / Time No Known Allergies Allergy Verified 12/26/24 10:20 General IMMANUEL: 2 Review of Systems Narrative: see HPI Exam Const General: cooperative, comfortable, no acute distress and well developed Nutritional Appearance: average body habitus Orientation: alert and oriented x3 HENMT Head: normal to inspection General nose exam: external nose normal Mouth: oral mucosae normal, oropharynx normal and moist mucous membranes Resp Effort & Inspection: normal respiratory effort and able to speak in complete sentences Auscultation: clear to auscultation bilaterally Cardio Jugular venous pressure: no JVD Rate: regular rate Rhythm: regular rhythm Extrem General: normal to inspection, no pedal edema and no calf tenderness Medical Decision Making Imaging Data Radiologic Study: Radiologist's impression: Exam(s) XR CHEST 2V PA LATERAL EXAM: XR CHEST 2V PA LATERAL CLINICAL HISTORY: cough and CP TECHNIQUE: 2D digital imaging was performed of the chest. Two images were obtained. PA and lateral views were obtained. COMPARISON: CR XR PORTABLE CHEST AP from 07/08/2021 FINDINGS: MEDIASTINUM: Normal. HEART: Normal. PULMONARY VASCULATURE: Normal. LUNGS: Clear. PLEURAL SPACE: No pleural effusion or pneumothorax. BONE:Within normal limits for the patient's age. There is a left shoulder replacement. OTHER FINDINGS:There is elevation of the left hemidiaphragm. IMPRESSION: No acute pulmonary findings Quality:SDOH Health Related Social Needs: No Data to Display PFSH All Active Problems (Updated 12/26/24 @ 13:13 by Roxanne Amaya) COVID-19 (Acute) Influenza A (Acute) History of total right hip replacement (Acute 11/24/23) History of colon polyps (Acute) Hyperlipidemia (Chronic) Benign prostatic hyperplasia with lower urinary tract symptoms (Chronic 03/18/17) Chronic low back pain (Chronic 10/01/14) Essential hypertension (Chronic 10/07/15) Hepatic steatosis (Chronic) 03/2023 labs: FIB-4 score = 1.26, cirrhosis less likely Erectile dysfunction (Chronic) Medical History Hyperplastic colon polyp Tubular adenoma of colon Thoracic compression fracture Heavy alcohol use Hepatitis C (10/01/14) Genotype 1, acquired late ; Liver bx: chronic hepatitis C stage 3/4, 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 Dr. Persaud did shoulder replacement 17 years later Family History Mother Colon cancer Father Diabetes Alcohol abuse Essential hypertension Cancer Throat Brother Stroke Sister Multiple sclerosis Social History (Updated 02/27/24 @ 16:31 by Anyi Vogel LPN) Smoking/Tobacco Use Status: Never Smoking risk assessment performed?: Yes Alcohol Intake: current Alcohol Intake frequency: a few times a month Alcohol type: beer Counseling given: Yes Drug use: Never Substance use type: does not use Adopted: No Caregiver/Support person: No Foster care: No Household members: spouse Housing: house Number of Children: 2 number of grandchildren: 3 Communication Needs: None Education Level: high school Do you need help understanding health information?: Rarely current occupation: Network Operations Technician Pets and animals: Yes Pets and animals: dog(s) Sexually active: Yes Do you think of yourself as: straight/heterosexual Current gender identity: male What is your relationship status?: How often do you talk on the phone with friends or family?: three or more times per week How often do you get together with friends or relatives?: three or more times per week Do you belong to any clubs or organized social groups?: no Panel score (0-1 are the most socially isolated patients): 2 What type of physical activity do you participate in: regular exercise Frequency: daily Special neha needs: No Seatbelt use: always Helmet use: Yes Drive 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
--- NOTE | 2024-12-26 10:15 | RT.EKG_ITS ---
APPROVED REPORT Exam: Resting ECG Reason for Exam: SOB Patient Location: E HR:77 bpm ECG Measurements Heart Rate 77 AXIS MI 191 P 65 QRSd 95 QRS -15 QT 379 T 67 QTc 429 Conclusion Sinus rhythm, rate 77 No interval abnormalities No STEMI Biphasic T wave V3 No priors available for comparison
[2024-12-26 10:50] VITALS: PULSE 72; PULSE 73; RESP 14; O2SAT 93
[2024-12-26 11:06] LABS: Abs Immature Grans 0.01 10^3/uL (0.0-0.06); Absolute Basophil Count 0.01 10^3/uL (0.0-0.2); Absolute Eosinophil Count 0.01 10^3/uL (0.0-0.7); Absolute Lymphocyte Count 0.27 10^3/uL (1.2-3.4); Absolute Monocyte Count 0.52 10^3/uL (0.1-0.8); Absolute Neutrophil Count 3.47 10^3/uL (1.2-6.7); Basophils % 0.2 %; Eosinophils % 0.2 %; HCT 39.2 % (40.0-50.0); HGB 13.3 g/dL (13.5-17.5); Immature Grans % 0.2 %; Lymphocytes % 6.3 %; MCH 29.6 pg (27.0-33.0); MCHC 33.9 % (32.0-36.0); MCV 87 fL (80-95); MPV 8.7 fL (8.0-11.0); Monocytes % 12.1 %; Platelet Count 193 10^3/uL (130-400); RDW 12.6 % (11.8-14.1); RDW-SD 39.9 fL; WBC 4.29 10^3/uL (4.4-10.8)
--- NOTE | 2024-12-26 11:10 | DI.RAD_ITS ---
Exam(s) XR CHEST 2V PA LATERAL EXAM: XR CHEST 2V PA LATERAL CLINICAL HISTORY: cough and CP TECHNIQUE: 2D digital imaging was performed of the chest. Two images were obtained. PA and lateral views were obtained. COMPARISON: CR XR PORTABLE CHEST AP from 07/08/2021 FINDINGS: MEDIASTINUM: Normal. HEART: Normal. PULMONARY VASCULATURE: Normal. LUNGS: Clear. PLEURAL SPACE: No pleural effusion or pneumothorax. BONE:Within normal limits for the patient's age. There is a left shoulder replacement. OTHER FINDINGS:There is elevation of the left hemidiaphragm. IMPRESSION: No acute pulmonary findings. DATA REPOSITORY: RADIATION DOSE DELIVERED:
[2024-12-26 11:16] VITALS: BP 149/81; PULSE 72; RESP 14; TEMP 36.9; O2SAT 93
[2024-12-26 11:26] LABS: ALT 46 U/L (16-63); AST 32 U/L (15-37); Albumin 4.1 g/dL (3.4-5.0); Alkaline Phosphatase 46 U/L (46-116); Anion Gap 5.6 mmol/L (3-11); BUN 13 mg/dL (7-18); Bilirubin, Total 0.52 mg/dL (0.2-1.0); CO2 27.4 mmol/L (21.0-32.0); CREATININE 0.9 mg/dL (0.70-1.30); Calcium 8.9 mg/dL (8.5-10.1); Chloride 105 mmol/L (98-107); Estimated GFR 94.78 (mL/min/1.73m2); Glucose 203 mg/dL (74-106); Magnesium 1.9 mg/dL (1.8-2.4); Potassium 3.5 mmol/L (3.5-5.1); Sodium 138 mmol/L (136-145); Total Protein 6.6 g/dL (6.4-8.2); Troponin I 45 ng/L (<or=76)
[2024-12-26 11:46] LABS: Influenza A PCR Positive (Negative); Influenza B PCR Negative (Negative); RSV PCR Negative (Negative)
[2024-12-26 11:54] LABS: Source Nasopharynx
[2024-12-26 11:55] LABS: COVID-19 PCR Positive (Negative)
[2024-12-26 12:38] LABS: Troponin I 43 ng/L (<or=76)
[2024-12-26 13:55] VITALS: PULSE 106; O2SAT 88
[2024-12-26 14:00] VITALS: BP 169/76; PULSE 100; PULSE 108; RESP 7
[2024-12-26 17:21] VITALS: BP 169/76; PULSE 100; RESP 12; RESP 7
== END 2024-12-26 13:35 | disposition home or self-care (01) ==
PROVIDERS: Emergency Provider Nurse Practitioner Family; PCP Nurse Practitioner
DX: J10.1 Influenza due to other identified influenza virus with other respiratory manifestations (principal); U07.1 COVID-19; R06.02 Shortness of breath
CPT/HCPCS: 80053; 87637; 93005; 99285; 71046; 83735; 84484; 85025; 93010; 99284

== ENCOUNTER 2025-01-19 09:00 | Emergency (ER) | payer MEDICARE, SELFPAY ==
[2025-01-19] VITALS (22 sets, daily range): BP systolic 110–149; BP diastolic 78–97; PULSE 55–72; RESP 18; O2SAT 96–100
--- NOTE | 2025-01-19 09:15 | DI.RAD_ITS ---
Exam(s) XR PELVIS AP XR FEMUR LT EXAM: XR PELVIS AP and XR femur LT CLINICAL HISTORY: Trauma. TECHNIQUE: 2D digital imaging was performed pelvis and left femur.Five images were obtained. COMPARISON: CR XR HIP RT COMPLETE AP PELVIS from 12/08/2023 FINDINGS: BONES: There is an acute comminuted fracture involving the medial wall of the left acetabulum with pr otrusion of the femoral head into the pelvis.. No bony destructive lesion is seen. JOINTS: No dislocation present. No joint space narrowing is present. The patient has a right total hi p arthroplasty which appears unremarkable on this single image. SOFT TISSUE: Normal. IMPRESSION: Acute comminuted displaced fracture of the left acetabulum involving predominantly the medial wall wi th protrusion of the femoral head into the pelvis. DATA REPOSITORY: RADIATION DOSE DELIVERED:
--- NOTE | 2025-01-19 09:15 | DI.RAD_ITS ---
Exam(s) XR CHEST 1V IN DI DEPT EXAM: XR CHEST 1V IN DI DEPT CLINICAL HISTORY: Trauma TECHNIQUE: 2D digital imaging was performed of the chest. Two images were obtained. AP views were obtained. COMPARISON: CR XR CHEST 2V PA LATERAL from 12/26/2024 FINDINGS: MEDIASTINUM: Normal. HEART: Normal. PULMONARY VASCULATURE: Normal. LUNGS: There is atelectasis in the left lung base. The right lung is clear. PLEURAL SPACE: No pleural effusion or pneumothorax. BONE:Within normal limits for the patient's age. OTHER FINDINGS:There is elevation of the left hemidiaphragm. IMPRESSION: No acute pulmonary findings. DATA REPOSITORY: RADIATION DOSE DELIVERED:
--- NOTE | 2025-01-19 09:15 | DI.RAD_ITS ---
Exam(s) XR SHOULDER RT COMPLETE 2+V EXAM: XR SHOULDER RT COMPLETE 2+V CLINICAL HISTORY: Trauma. TECHNIQUE: 2D digital imaging was performed of the right shoulder. Four images were obtained. AP, Grashey and Y views were obtained. COMPARISON: No exams were available for comparison FINDINGS: BONES: There appears to be deformity involving the medial aspect of the scapular body suspicious for a fracture. The area is difficult to visualize due to the overlying ribs. No bony destructive lesio n is seen. JOINTS: No dislocation present. There are degenerative changes seen at the acromioclavicular and monie ohumeral joints. SOFT TISSUE: Normal. IMPRESSION: Question of a fracture involving the medial aspect of the scapular body. A CT scan of the scapula sh ould be considered for further evaluation. DATA REPOSITORY: RADIATION DOSE DELIVERED:
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
[2025-01-19] MEDS: MORPHine 4 MG/ML SYR IVP (09:30)
[2025-01-19] MEDS: Ondansetron 4 MG/2 ML VIAL IVP (09:32)
[2025-01-19 09:43] LABS: Abs Immature Grans 0.04 10^3/uL (0.0-0.06); Absolute Basophil Count 0.02 10^3/uL (0.0-0.2); Absolute Eosinophil Count 0.13 10^3/uL (0.0-0.7); Absolute Lymphocyte Count 0.82 10^3/uL (1.2-3.4); Absolute Monocyte Count 0.59 10^3/uL (0.1-0.8); Basophils % 0.3 %; Eosinophils % 2.2 %; HCT 41.1 % (40.0-50.0); HGB 13.9 g/dL (13.5-17.5); Immature Grans % 0.7 %; Lymphocytes % 13.7 %; MCH 29.3 pg (27.0-33.0); MCHC 33.8 % (32.0-36.0); MCV 87 fL (80-95); MPV 8.3 fL (8.0-11.0); Monocytes % 9.8 %; Neutrophils % 73.3 %; Platelet Count 246 10^3/uL (130-400); RBC 4.75 10^6/uL (4.36-5.78); RDW 12.6 % (11.8-14.1); RDW-SD 39.9 fL
[2025-01-19] MEDS: Normal Saline 500 ML IV (09:44)
[2025-01-19 09:59] LABS: ALT 41 U/L (16-63); AST 28 U/L (15-37); Alkaline Phosphatase 55 U/L (46-116); Anion Gap 7.4 mmol/L (3-11); BUN 16 mg/dL (7-18); Bilirubin, Total 0.67 mg/dL (0.2-1.0); CO2 27.6 mmol/L (21.0-32.0); Calcium 9.2 mg/dL (8.5-10.1); Chloride 103 mmol/L (98-107); Estimated GFR 83.52 (mL/min/1.73m2); Glucose 99 mg/dL (74-106); Potassium 3.9 mmol/L (3.5-5.1); Sodium 138 mmol/L (136-145)
[2025-01-19 10:15] LABS: Prothrombin Time 10.5 sec (9.1-11.1)
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
--- NOTE | 2025-01-19 10:41 | DI.VRAD_ITS ---
PROCEDURE INFORMATION: Exam: XR Pelvis Exam date and time: 01/19/2025 10:01 AM Age: 64 years old Clinical indication: Other: Trauma TECHNIQUE: Imaging protocol: Radiologic exam of the pelvis. Views: 1 or 2 view. COMPARISON: CR XR HIP RT COMPLETE AP PELVIS 12/08/2023 10:24 AM FINDINGS: Bones/joints: Right total hip arthroplasty in normal anatomic alignment. Moderate degenerative changes of the left hip, with joint space narrowing and osteophyte formation. Acute, displaced left acetabular fracture, with disruption of the quadrilateral surface. No dislocation. Soft tissues: Unremarkable. Other findings: Changes of prior vasectomy. IMPRESSION: Acute, displaced left acetabular fracture, with disruption of the quadrilateral surface. Recommend further evaluation with CT. Dictated and Authenticated by: Krzysztof Pritchett MD. Orderin Neelima Dasilva MD
--- NOTE | 2025-01-19 10:42 | DI.VRAD_ITS ---
PROCEDURE INFORMATION: Exam: XR Right Shoulder Exam date and time: 01/19/2025 10:06 AM Age: 64 years old Clinical indication: Other: Trauma TECHNIQUE: Imaging protocol: Radiologic exam of the right shoulder. Views: 2 or more views. COMPARISON: CR XR CHEST 2V PA LATERAL 12/26/2024 11:06 AM FINDINGS: Bones/joints: Possible acute fracture of the scapular body, not well characterized on this study. Degenerative changes of the acromioclavicular and glenohumeral joints, with joint space narrowing and osteophyte formation. Soft tissues: Normal. IMPRESSION: Possible acute fracture of the scapular body, not well characterized on this study. Recommend further evaluation with CT. Dictated and Authenticated by: Krzysztof Pritchett MD. Orderin Neelima Dasilva MD
--- NOTE | 2025-01-19 10:43 | DI.VRAD_ITS ---
PROCEDURE INFORMATION: Exam: XR Left Femur Exam date and time: 01/19/2025 10:03 AM Age: 64 years old Clinical indication: Other: Trauma TECHNIQUE: Imaging protocol: Radiologic exam of the left femur. Views: 2 views. COMPARISON: CR XR PELVIS AP 01/19/2025 10:01 AM FINDINGS: Bones/joints: Degenerative changes of the left hip, with joint space narrowing and osteophyte formation. Acute, displaced left acetabular fracture, with involvement of the quadrilateral surface. No dislocation. Soft tissues: Unremarkable. IMPRESSION: Acute, displaced left acetabular fracture, with involvement of the quadrilateral surface. Dictated and Authenticated by: Krzystzof Pritchett MD. Orderin Neelima Dasilva MD
--- NOTE | 2025-01-19 10:46 | DI.VRAD_ITS ---
PROCEDURE INFORMATION: Exam: XR Chest Exam date and time: 01/19/2025 10:13 AM Age: 64 years old Clinical indication: Other: Trauma TECHNIQUE: Imaging protocol: Radiologic exam of the chest. Views: 1 view. COMPARISON: CR XR CHEST 2V PA LATERAL 12/26/2024 11:06 AM FINDINGS: Lungs: Normal. Pleural spaces: Normal. Heart/Mediastinum: Normal. Diaphragm: Mild elevation of the left hemidiaphragm. Bones/joints: Multilevel thoracic spine degenerative disc space narrowing. Left shoulder prosthesis. IMPRESSION: No acute cardiopulmonary abnormality. Dictated and Authenticated by: Krzysztof Pritchett MD. Orderin Neelima Dasilva MD
[2025-01-19 11:19] LABS: Bilirubin Negative (Negative); Blood Negative (Negative); Clarity Clear (Clear); Glucose Negative (Negative); Ketones Negative (Negative); Leukocyte Esterase Negative (Negative); Nitrite Negative (Negative); Urobilinogen 0.2 mg/dL (Up to 0.2); pH 8.5 (5-8)
[2025-01-19] MEDS: fentaNYL 100 MCG/2 ML VIAL 25 MCG IVP (11:19)
[2025-01-19] MEDS: Normal Saline 1,000 ML 1000 ML IV (11:19)
[2025-01-19 11:34] LABS: Bacteria Many HPF (Negative); C & S Indicated? No; Casts 0-2 Coarse Granular LPF (Negative); Crystals Moderate Amorphous HPF (Negative); Epithelial Cells Negative HPF (Negative); Mucus Trace (Negative); Other Cells Negative (Negative); RBC Negative HPF (0-2)
[2025-01-19] MEDS: Lidocaine 2% Jelly 6 ML SYR (11:36)
== END 2025-01-19 11:44 | disposition short-term general hospital (02) ==
PROVIDERS: Emergency Provider Registered Nurse Emergency; PCP Nurse Practitioner
DX: S32.472A Displaced fracture of medial wall of left acetabulum, initial encounter for closed fracture (principal); S42.191A Fracture of other part of scapula, right shoulder, initial encounter for closed fracture; E78.5 Hyperlipidemia, unspecified; I10 Essential (primary) hypertension; V86.52XA Driver of snowmobile injured in nontraffic accident, initial encounter; Y93.29 Activity, other involving ice and snow; Y92.838 Other recreation area as the place of occurrence of the external cause
CPT/HCPCS: 00123; 36415; 73552; 76604; 76705; 76857; 80053; 96361; 96374; 96375; 99285; 71045; 72170; 73030; 81003; 81015; 85025; 85610; J2270; J2405; J3010

== ENCOUNTER 2025-06-05 02:08 | Outpatient (CLI) | payer MEDICARE, SELFPAY ==
--- NOTE | 2025-06-05 | DI.RAD_ITS ---
Exam(s) XR PELVIS W OBLIQUES 3V EXAM: XR PELVIS W OBLIQUES 3V CLINICAL HISTORY: CLOSED DISPLACED FX OF ANTERIOR COLUMN OF L ACETABULUM S32.432D. TECHNIQUE: 2D digital imaging was performed. COMPARISON: CR,XR XR PELVIS AP from 01/19/2025 FINDINGS: 3 views There has been interval placement of fixation plate across the left hip acetabular fracture common this plate extending from the symphysis pubis up to the iliac bone and secured by multiple screws. A 2nd sort ower fixation plate is seen along the inner left pelvic brim. There appears to be satisfactory reduction of the previously present fracture fragments as seen on image of 01/19/2025. there is no evidence of hardware loosening nor radiographic evidence of osteomyelitis. There is some narrowing of the ipsilateral left hip joint again noted consistent with moderate-advanced degenerative change in the left hip joint. A right hip prosthesis is again noted. IMPRESSION: As above. DATA REPOSITORY: RADIATION DOSE DELIVERED:
== END 2025-06-05 02:28 ==
PROVIDERS: PCP Nurse Practitioner; Visit Provider Student in an Organized Health Care Education/Training Program
DX: S32.432D Displaced fracture of anterior column [iliopubic] of left acetabulum, subsequent encounter for fracture with routine healing (principal); Z96.641 Presence of right artificial hip joint; X58.XXXD Exposure to other specified factors, subsequent encounter
CPT/HCPCS: 72190

== ENCOUNTER 2025-06-25 02:54 | Outpatient (CLI) | payer MEDICARE, SELFPAY ==
--- NOTE | 2025-06-25 09:00 | DI.CT_ITS ---
Exam(s) CT CHEST WO EXAM: CT CHEST WO CLINICAL HISTORY: lung nodule, SEEN ON IMAGING STUDY, R91.1 SOLITARY NODULE. TECHNIQUE: Imaging protocol: Axial computed tomography images were obtained and coronal and sagittal reformatted images were created and reviewed. Computer aided detection (CAD) was utilized. CONTRAST MATERIAL: Noncontrast COMPARISON: CT CHEST WITH CONTRAST from 12/15/[address] CHEST ABDOMEN PELVIS W CONTRAST (GENERIC) from 01/19/2025 FINDINGS: Pulmonary parenchyma: No consolidation. Smoothly marginated 8 x 4 millimeter nodule again noted adjacent to a medial left upper lobe pulmonary vein. Interstitial changes: None. Emphysema: None. Tracheobronchial tree: No mucous plugging. No bronchiectasis . Pleura: No effusion or pneumothorax. Heart: The heart is moderately dilated. The coronary arteries show mild calcifications. Aorta: Ascending aorta measures 4.3 cm. Mild atherosclerotic changes. Lymph nodes: No enlarged lymph nodes. Bones: Left shoulder prosthesis. Mild degenerative changes are seen. Stable T12 compression fracture. Upper abdomen: Unremarkable. Soft tissues: Unremarkable. IMPRESSION: Stable 4 x 8 millimeters smoothly marginated nodule adjacent to a pulmonary vein in the anterior medial left upper lobe. In retrospect, was present on the [address] No further follow-up recommended. RADIATION DOSE DELIVERED: Total DLP DATA REPOSITORY: All CT scans at this facility are submitted to the National Radiology Data Registry (NRDR) Dose Index Registry (DIR) with the [employer] ([employer]). RADIATION OPTIMIZATION: All CT scans at this facility use at least one of these dose optimization techniques: automated exposure control; mA and/or kV adjustment per patient size (includes targeted exams where dose is matched to clinical indication); or iterative reconstruction.
== END 2025-06-25 03:14 ==
LOC: DI 02:54
PROVIDERS: PCP Nurse Practitioner; Visit Provider Family Medicine
DX: R91.1 Solitary pulmonary nodule (principal)
CPT/HCPCS: 71250

== ENCOUNTER 2025-08-07 02:32 | Outpatient (CLI) | payer MEDICARE, SELFPAY ==
--- NOTE | 2025-08-07 15:41 | DI.CT_ITS ---
Exam(s) CT SINUS WO EXAM: CT SINUS WO CLINICAL HISTORY: sinus congestion,R09.81. Evaluate for sinusitis. TECHNIQUE: Imaging Protocol: Axial computed tomography images with coronal and sagittal reformatted images were created and reviewed. COMPARISON: No exams were available for comparison FINDINGS: Frontal sinuses: Mild mucous retention in the left frontal sinus. Ethmoid air cells: The majority of the ethmoid sinuses are opacified. Maxillary sinuses: Significant mucous retention in both maxillary sinuses. Sphenoid sinuses: Normally aerated. Ostiomeatal complexes: Occluded bilaterally. Nasal cavity: Nasal septum is deviated toward the right. There is ivette bullosa of the left middle turbinate. There is thickening bilaterally of both the nasal turbinates which could indicate polyps. Visualized regional soft tissues: No acute findings. Orbits: Unremarkable. Bones: Old nasal fractures. No bony destruction. Mastoid Air Cells: Normally aerated. Visualized portions of the brain: Unremarkable as visualized. IMPRESSION: Severe chronic maxillary and ethmoid sinus disease. RADIATION DOSE DELIVERED: Total DLP DATA REPOSITORY: All CT scans at this facility are submitted to the National Radiology Data Registry (NRDR) Dose Index Registry (DIR) with the [employer] ([employer]). RADIATION OPTIMIZATION: All CT scans at this facility use at least one of these dose optimization techniques: automated exposure control; mA and/or kV adjustment per patient size (includes targeted exams where dose is matched to clinical indication); or iterative reconstruction.
== END 2025-08-07 02:52 ==
LOC: DI 02:33
PROVIDERS: PCP Nurse Practitioner; Visit Provider Family Medicine
DX: J32.0 Chronic maxillary sinusitis (principal); J32.2 Chronic ethmoidal sinusitis; R09.81 Nasal congestion
CPT/HCPCS: 70486

== ENCOUNTER 2025-09-12 10:53 | Outpatient (CLI) | payer MEDICARE, SELFPAY ==
--- NOTE | 2025-09-12 11:54 | DI.RAD_ITS ---
Exam(s) XR PELVIS W OBLIQUES 3V EXAM: XR PELVIS W OBLIQUES 3V CLINICAL HISTORY: F/U CLOSED FX,S32.432D. TECHNIQUE: 2D digital imaging was performed. Four views. COMPARISON: CR,XR XR PELVIS AP from 01/19/2025 FINDINGS: BONES: Fixation plates are again noted along the left pelvic rim. The fractures are not discretely visualized. A right hip prosthesis is noted which is unremarkable. No acute fracture is present. No bony destructive lesion is seen. JOINTS: No dislocation present. There are moderate to severe degenerative changes of the left hip. SI joints and pubic symphysis are unremarkable. SOFT TISSUE: Vascular calcifications. IMPRESSION: Stable left pelvic hardware. DATA REPOSITORY: RADIATION DOSE DELIVERED:
== END 2025-09-12 11:13 ==
LOC: DI 10:54
PROVIDERS: PCP Nurse Practitioner; Visit Provider Physician Assistant
DX: S32.432D Displaced fracture of anterior column [iliopubic] of left acetabulum, subsequent encounter for fracture with routine healing (principal); Z96.698 Presence of other orthopedic joint implants
CPT/HCPCS: 72190